=== PATIENT | female | born 1970 | race Caucasian/White ===

== ENCOUNTER → 2018-01-06 15:00 | Outpatient (CLI) | payer BC, SELFPAY ==
[2018-01-06 18:20] LABS: Anion Gap 12 (5-15); BUN 13 mg/dL (7-18); BUN/Creat Ratio 22.1 RATIO (10-20); Calcium,Total 8.9 mg/dL (8.5-10.1); Chloride 98 mmol/L (98-107); Creatinine, Serum 0.59 mg/dL (0.55-1.02); EST Glomerular Filtration Rate 116 mL/min (>60); Est Glom Filt Rate - Afr Amer 140 mL/min (>60); Glucose 232 mg/dL (74-106); Potassium 3.5 mmol/L (3.5-5.1); Sodium Level 135 mmol/L (136-145)
[2018-01-06 18:34] LABS: Hemoglobin A1c 10.9 % (4.2-6.3)
== END ==
PROVIDERS: Family Provider Family Medicine; PCP Family Medicine; Visit Provider Family Medicine
DX: R73.9 Hyperglycemia, unspecified (principal)
CPT/HCPCS: 36415; 80048; 83036

== ENCOUNTER → 2018-03-17 08:35 | Outpatient (CLI) | payer OTHER, SELFPAY ==
[2018-03-17 12:04] LABS: Absolute Lymphocyte Count 1.89 X10^3/ul (0.83-4.51); Absolute Neutrophil Count 2.6 X10^3/uL (2.0-7.7); Basophil# 0.03 X10^3/uL; Basophil% 0.6 % (0-1); Hematocrit 46.1 % (37-47); Hemoglobin 14.8 g/dl (12.0-15.0); Lymphocyte # 1.89 X10^3/ul (4.0); Lymphocyte % 37.5 % (19-41); Mean Corp Hgb Conc 32.1 g/gl (32-36); Mean Corpuscular Volume 90.2 fL (81-99); Mean Platelet Vol. 10.4 fl (6.2-12.0); Monocyte# 0.39 X10^3/uL; Monocyte% 7.7 % (0-10); Neutrophil # 2.62 X10^3/uL (2.7-7.7); Platelet Count 243 K/mm3 (150-450); RBC Distribution Width CV 12.5 % (11.6-14.6); RBC Distribution Width SD 40.9 fl (35.1-43.9); Red Blood Count 5.11 M/mm3 (4.2-5.4)
[2018-03-17 12:18] LABS: POSITIVE COUNT NO; POSITIVE DIFFERENTIAL NO; POSITIVE MORPHOLOGY NO
[2018-03-17 12:33] LABS: Anion Gap 11 (5-15); BUN 21 mg/dL (7-18); BUN/Creat Ratio 33.5 RATIO (10-20); Calcium,Total 8.5 mg/dL (8.5-10.1); Chloride 103 mmol/L (98-107); Creatinine, Serum 0.63 mg/dL (0.55-1.02); EST Glomerular Filtration Rate 107 mL/min (>60); Est Glom Filt Rate - Afr Amer 130 mL/min (>60); Glucose 263 mg/dL (74-106); Potassium 3.9 mmol/L (3.5-5.1); Sodium Level 138 mmol/L (136-145); T4 Free Direct 0.94 ng/dL (0.76-1.46)
== END ==
PROVIDERS: Family Provider Family Medicine; PCP Family Medicine; Visit Provider Family Medicine
DX: E11.65 Type 2 diabetes mellitus with hyperglycemia (principal)
CPT/HCPCS: 36415; 80048; 84439; 84443; 85025

== ENCOUNTER → 2020-08-31 07:05 | Outpatient (CLI) | payer OTHER, SELFPAY ==
--- NOTE | 2020-08-31 07:09 | BI_ITS ---
MAMMOGRAPHY - BILATERAL SCREENING REASON FOR EXAM: Female, 50 years old. Routine annual screening examination. PERTINENT HISTORY: Non-contributory. TECHNIQUE: Digital bilateral breast cely (3D mammographic acquisition) in the CC and MLO projections. 2-D mediolateral oblique (MLO) and craniocaudad (CC) views of both breasts were obtained. CAD: Full Field Digital Mammography with Computer Added Detection was performed. COMPARISON: Comparison is made with prior examination dated 08/30/2010. FINDINGS: Breast Composition: There are scattered areas of fibroglandular density. There are no dominant masses or suspicious calcifications. Stable 7 mm well-defined nodule in the axillary region of the right breast and keep with a small lymph node. No other significant abnormalities are identified. There has been no significant change since the prior study. BI/SCRN MAMM (CAD)W/CELY BILAT IMPRESSION: Stable bilateral screening mammogram. Yearly follow-up mammogram recommended. (A) ASSESSMENT CATEGORY: BIRADS Category 2: Benign. A letter regarding these results will be sent to the patient by the facility within 30 days. Approximately 10% of breast cancers are not detected by mammography. A normal mammogram should not delay biopsy of a clinically suspicious abnormality. [id number] Electronically Signed: Sukhdeep Godinez MD at 8:08 EDT , Service support ,
== END ==
PROVIDERS: PCP Family Medicine; Referring Provider Family Medicine; Visit Provider Family Medicine
DX: Z12.31 Encounter for screening mammogram for malignant neoplasm of breast (principal)
CPT/HCPCS: 77063; 77067

== ENCOUNTER → 2021-08-28 | Outpatient (CLI) | payer OTHER, SELFPAY ==
[2021-08-28 12:54] LABS: Cholesterol 191 mg/dL (200); High Density Lipoprotein 63 mg/dL; Triglycerides 131 mg/dL; Very Low Density Lipoprotein 26 mg/dL (5-40)
[2021-08-28 13:04] LABS: Vitamin D,25 Hydroxy 23.7 ng/mL
[2021-08-28 13:20] LABS: AST(SGOT) 19 U/L (15-37); Alanine Aminotransfer ALT/SGPT 19 U/L (13-56); Albumin, Serum 3.6 g/dL (3.2-5.0); Alkaline Phosphatase 43 U/L (45-117); Anion Gap 9 (5-15); BUN 17 mg/dL (7-18); Calcium,Total 8.6 mg/dL (8.5-10.1); Chloride 103 mmol/L (98-107); Creatinine, Serum 0.53 mg/dL (0.55-1.02); EST Glomerular Filtration Rate 128 mL/min (>60); Est Glom Filt Rate - Afr Amer 155 mL/min (>60); Globulin 3.7 g/dL (2.2-4.2); Glucose 127 mg/dL (74-106); Potassium 4.3 mmol/L (3.5-5.1); Protein, Total 7.3 g/dL (6.4-8.2); Sodium Level 138 mmol/L (136-145); Thyroid Stim Hormone (TSH) 1.52 uIU/mL (0.358-3.74)
== END | disposition home or self-care (01) ==
LOC: BIMLAB 08:32
PROVIDERS: Nurse Practitioner Family; PCP Family Medicine; Referring Provider Internal Medicine Endocrinology, Diabetes & Metabolism; Visit Provider Internal Medicine Endocrinology, Diabetes & Metabolism
DX: E11.65 Type 2 diabetes mellitus with hyperglycemia (principal); E66.3 Overweight
CPT/HCPCS: 36415; 80053; 80061; 82306; 84443

== ENCOUNTER → 2023-05-09 | Outpatient (CLI) | payer OTHER, SELFPAY ==
--- OUTSIDE RECORDS SUMMARY | 2023-05-09 09:59 | XMS RPT_ITS | CCD ---
Author Name Unknown Address [address] [place] [address] Organization [facility] Care Team Providers Care Manager Consumer Name Role Phone Pcp, No Primary Care Provider Unavailabl e Results Test Name Value Interpretation Reference Range Facil ity Encounters Encounter Date Encounter Type Care Provider Facility Start: 04-23-2006 End: 04-23-2006 Patient encounter procedure Deejay Espino (Historical) [place] Work Phone: [facility] Start: 04-23-2006 Results Only Deejay Espino (Histor ical) [employer] Work Phone: [facility] Procedures Date Procedure Procedure Detail Performing Clinician Start: 04-23-2006 CONVERTED SURGICAL PATHOLOGY Deejay Espino (Historical) [place] Work Phone: Plan of Treatment Date Care Activity Detail Author Start: 11-03-2019 Influenza vaccination INFLUENZA (#1) [facility] Start: 2019 SHINGRIX VACCINE (1 of 2) YOUSSEF GRIX VACCINE (1 of 2) [facility] Start: 2019 Tuberculosis screening COLOREC BAMBI CANCER SCREENING,SEE MODIFIER [facility] Start: 2014 DIABETES SCREEN DIABETES SCREEN [facility] Start: 2014 LIPID SCREEN LIPID SCREEN [facility] Start: 2009 Mammography MAMMOGRAM [facility] Start: 1999 HPV TESTING HPV TESTING [facility] Start: 1990 PAP TESTING PAP TESTING [facility] Start: 1988 Urine microalbumin profile DTAP,TDAP ,TD (1 - Tdap) [facility] Start: 1987 HEPATITIS C SCREENING HEPATITIS C SC STEPH [facility] Start: 1987 HIV SCREENING [facility]CREENING [facility] Payers Date Payer Category Payer Unknown [facility]OSP[facility]/MEDICAL GENERIC [id number] 2001-2009 Indemnity [id number] Unknown MMO [employer] [id number] Through 2018 PPO [id number] Social History Date Type Detail Facility Tobacco smoking status NHIS Unknown if ev er smoked [facility] Sex Assigned At Not on file [facility] Additional Source Comments Source Comments (unrecognize d section and content) In the event this informatio n is protected by the Federal Confidentiality of Alcohol and Drug Abuse Patient Records regulations: The Federal rules restrict any use of the information to criminally investigate or prosecute any alcohol or drug abuse patient.[facility] FOR RECORDS PERTAINING TO PATIENTS WHO ARE OR HAVE BEEN ENROLLED IN A CHEMICAL DEPENDENCY/SUBSTANCEABUSE PROGRAM, SOME INFORMATION MAY BE OMITTED. This clinical summary was aggregated from multiple sources. Caution should be exercised in using it in the provision of clinical care. This summary normalizes information from multiple sources, and as a consequence, information in this document may materially change the coding, format and clinical context of patient data. In addition, data may be omitted in some cases. CLINICAL DECISIONS SHOULD BE BASED ON THE PRIMARY CLINICAL RECORDS. [email or web address] [facility]. provides no warranty or guarantee of the accuracy or completeness of information in this document.
[2023-05-09 10:21] LABS: ALB/GLOB Ratio 0.9 RATIO (0.9-2.4); AST(SGOT) 11 U/L (15-37); Alanine Aminotransfer ALT/SGPT 11 U/L (13-56); Albumin, Serum 3.6 g/dL (3.2-5.0); Alkaline Phosphatase 57 U/L (45-117); Anion Gap 8 (5-15); BUN 22 mg/dL (7-18); BUN/Creat Ratio 34.9 RATIO (10-20); Calcium,Total 8.6 mg/dL (8.5-10.1); Chloride 105 mmol/L (98-107); Cholesterol 244 mg/dL (200); Creatinine, Serum 0.63 mg/dL (0.55-1.02); EST Glomerular Filtration Rate 104 mL/min (>60); Est Glom Filt Rate - Afr Amer 126 mL/min (>60); Glucose 131 mg/dL (74-106); High Density Lipoprotein 56 mg/dL; Potassium 3.8 mmol/L (3.5-5.1); Protein, Total 7.6 g/dL (6.4-8.2); Sodium Level 138 mmol/L (136-145); Thyroid Stim Hormone (TSH) 1.55 uIU/mL (0.358-3.74); Triglycerides 172 mg/dL; Very Low Density Lipoprotein 34 mg/dL (5-40)
[2023-05-09 10:56] LABS: Vitamin D,25 Hydroxy 21.4 ng/mL
[2023-05-09 12:31] LABS: Microalbumin,Random Urine 22.2 mg/L (NO RANGE EST.); Microalbumin:Creatinine Ratio 14.5 mg/g CRE (<30 mg/g CRE)
== END | disposition home or self-care (01) ==
PROVIDERS: Referring Provider Nurse Practitioner Family; Visit Provider Nurse Practitioner Family
DX: E11.9 Type 2 diabetes mellitus without complications (principal); E66.3 Overweight; E55.9 Vitamin D deficiency, unspecified
CPT/HCPCS: 36415; 80053; 80061; 82043; 82306; 82570; 84443

== ENCOUNTER 2024-05-28 15:30 | Outpatient (RCR) | payer OTHER, SELFPAY ==
--- NOTE | 2024-04-28 18:46 | HP.PTEVAL_ITS ---
Patient's Visit Information Visit Information Visit Information: DAWIT STOVALL is a 54 year old F referred to Physical Therapy by Dr. Trevon Aguero MD with a diagnosis of L ankle pain. Date of Evaluation: 04/28/24 Physical Therapist: Lemuel Koenig, DPT, OCS, CSCS Visit Plan Frequency: 2x /Week Duration: 4-6 Weeks Plan: 2x/week for 4-6 weeks start with Foot and ankle STM and PROM, use vaso and ice and TENS if painful at rest. Ensure patient resting at home and is to get brace for stabilization and wear neoprene and avoid aggravating activities, US nonthermal to L lateral ankle When improved, move to strength adn proprioception L ankle. IE HEP: gastroc stretch L 30 5 daily and use neoprene, get brace(pic given) and manage swelling with RICE Subjective Subjective: 4 weeks ago hard to walk on L foot and had x rays which look OK. May have some OA. More thinks torn ligaments. and gave pain meds. Started out of no where 4 weeks ago without reason. No other recent problems with it other than stiffness in bad weather. . 4 weeks ago hard to get shoes on. 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 No activities differing 4 weeks ago but it could be the bowling. It is her sliding foot. Had to stop. Dr. Aguero gave meds meloxicam and just started it today. Ibuprofen rest adn ice from original doctor. 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 Other hobbies: nothing. Regualr ex: no Basic ADLs are getting done adn putting shoes on wiggling in is tough. Doctor wants MRI but needs therapy first. 70% better. Pain L ankle lateral: Pain Intensity (Out of 10): 2 Pain Intensity Range: 2 and 8 Comment: stopped bowling a couple weeks ago. Objective Objective: Walks hesitantly into PT today adn slow but no antalgia. I gait with good balance. Trasnfers bed and chair are I. Steps reciprocal but turns sideways descending to avoid L DF. Swelling evident L lateral ankle over ATFL area and max tender through this area. Peroneals feel OK and some slight tenderness on malleoli laterally. AROM ankle is limited on L at 0 DF vs 4 on R, inv 20 L and pain and 30 R, inversion 10 L with pain and 18 R. PF 40 L and 50 R. Very painful with inv and ev testing MMT on L with 3+/5 and Df is 4 and PF is 4 and painful. Heel raise causes pain, toe walk not as bad. lateral walking is painful L la teral ankle + talar tilt on L. Metatarsals move well but painful on L lateral big toe strength and ROM WFL B Balance/Special Test Scores Lower Extremity Functional Score: 15 Goals Goal 1:: Put on shoes without pain Goal Time Frame: 2-4 Weeks Goal 2:: Pt feel 95% better overall and 1/10 pain at worst, comfortable at rest Goal Time Frame: 4-6 Weeks Goal 3:: I appropriate managemnt including bracing, and ex for proprioception and strength Goal Time Frame: 4-6 Weeks Goal 4:: LEFS score 40 Goal Time Frame: 4-6 Weeks Goal 5:: walks and steps without antalgia Goal Time Frame: 4-6 Weeks Rehabilitation Potential Physical Therapy Diagnosis: edema, pain, loss of ROM and weakness L ankle causing instability. and inflammation. Rehabilitation Potential: Fair Anticipated Interventions Patient/Client Instruction: Educate patient on: Condition and Plan of Care For the Purpose of:: To decrease pain, To increase ROM, To improve nutrient del sukhjinder to tissue, To improve muscle performance and motor function, To increase tolerance to activity/condition/position and To improve gait and locomotor functions Therapeutic Exercise to Include: Strength training, Balance training, Flexibilty training, Passive ROM and Active ROM For the Purpose of:: To decrease pain, To increase ROM, To improve nutrient delivery to tissue, To improve muscle performance and motor function, To increase tolerance to activity/condition/position, To decrease level of supervision to perform tasks and To improve gait and locomotor functions Manual Therapy Techniques to Include: Mobilization, Passive ROM and Soft tissue mobilization For the Purpose of:: To decrease pain, To increase ROM, To improve nutrient delivery to tissue, To improve muscle performance and motor function and To increase tolerance to activity/condition/position TENS: Yes Cryotherapy (ice pack, ice massage): Yes Ultrasound (thermal/non thermal): Yes (nontheermal) For the Purpose of:: To decrease pain, To decrease swelling/inflammation, To increase ROM and To improve nutrient delivery to tissue Text: Thank you for the opportunity to evaluate your patient. For Medicare and Medicare HMO plans, please review the plan of care and approve it. It will need to be FAXED BACK to us at [phone] for Medicare purposes. For Medicare only, by signing this I certify the plan of care. Please let me know if there are questions or concerns regarding this plan of care. Physician Signature: Date:
--- NOTE | 2024-05-28 16:23 | HP.PTDCSUM ---
Discharge Summary D/C summary: It has been my pleasure to treat DAWIT STOVALL referred by Dr. Trevon Aguero MD, with the diagnosis of L ankle pain for a total of 8 visit(s). Discharge Date: 05/28/24 Please see the following information for a summary of their discharge status. Subjective Subjective: Swelling is up and down. Seems to get better with massage. Will see More oshea for possible MRI. pain this week L ankle intermittent 4/10 but mostly 0/10, Only with pushing sideways into car. No improvement in those activities. Pivotting can also cause it. Transient pain. Pain L ankle lateral: Pain Intensity (Out of 10): 3 Overall Improvement % Improvement: 0 Objective Objective/Function: 2 degree DF B. Max tender ant lateral malleoli ligs and swollen here as much as day one. Painful ROM into eversion and ext on R and resisted inv, ev. Pt frustrated with lack of progrfess and sharp pains with lateral movement and getting in and out of car. Goals Goal 1:: Put on shoes without pain Goal Progress: Not Progressing Goal 2:: Pt feel 95% better overall and 1/10 pain at worst, comfortable at rest Goal Progress: Not Progressing Goal 3:: I appropriate managemnt including bracing, and ex for proprioception and strength Goal Progress: Not Progressing Goal 4:: LEFS score 40 Goal Progress: Not Progressing Goal 5:: walks and steps without antalgia Goal Progress: Goal Met Plan Plan: Pt back to doctor for next step due to lack of improvement with PT..., MRI? She will continue ex in the meantime via HEP d/c this chart. D/C Information Discharge Comments: Meche to doctor for next medical step. d/c sentence: If there are questions or concerns regarding this patient's physical therapy, please feel free to call me at [phone]. Thank you for the referral of this patient. Sincerely, Lemuel Koenig, DPT, OCS, CSCS Balance/Gait/Functional tests Balance/Special Test Scores Lower Extremity Functional Score: 50 Improvement % Improvement: 0
== END 2024-05-28 19:00 | disposition home or self-care (01) ==
LOC: PT 15:30
PROVIDERS: Referring Provider Anesthesiology; Visit Provider Anesthesiology
DX: M25.572 Pain in left ankle and joints of left foot (principal)
CPT/HCPCS: 97035; 97110; 97140; 97161; 97530

== ENCOUNTER → 2024-08-06 | Outpatient (CLI) | payer OTHER, SELFPAY ==
[2024-08-06 09:10] LABS: Microalbumin,Random Urine < 12.0 mg/L (NO RANGE EST.); Microalbumin:Creatinine Ratio UNABLE TO CALCULATE mg/g CRE
[2024-08-06 09:26] LABS: ALB/GLOB Ratio 1.4 RATIO (0.9-2.4); AST(SGOT) 18 U/L (<=31); Alanine Aminotransfer ALT/SGPT 9 U/L (<=34); Albumin, Serum 4.2 g/dL (3.5-5.0); Alkaline Phosphatase 65 U/L (35-104); Anion Gap 12 (5-15); BUN 16 mg/dL (4-19); Calcium,Total 9.1 mg/dL (7.6-11.0); Carbon Dioxide 26.9 mmol/L (21.0-32.0); Chloride 100 mmol/L (98-108); Cholesterol 218 mg/dL (<=200); EST Glomerular Filtration Rate 106 (>60); Globulin 2.9 g/dL (2.2-4.2); Glucose 180 mg/dL (70-99); High Density Lipoprotein 54 mg/dL; Low Density Lipoprotein Calc. 120 mg/dL; Potassium 4.1 mmol/L (3.3-5.1); Protein, Total 7.1 g/dL (5.9-8.4); Sodium Level 139 mmol/L (133-145); Total Bilirubin 0.95 mg/dL (0.00-1.30); Triglycerides 223 mg/dL; Very Low Density Lipoprotein 45 mg/dL (5-40); Vitamin D,25 Hydroxy 24.3 ng/mL (30-100); cholesterol:hdl ratio screen 4.04
[2024-08-07 14:09] LABS: Thyroid Peroxidase AB 274 IU/mL (0-34)
== END | disposition home or self-care (01) ==
PROVIDERS: Referring Provider Nurse Practitioner Family; Visit Provider Nurse Practitioner Family
DX: E11.9 Type 2 diabetes mellitus without complications (principal); Z79.4 Long term (current) use of insulin; R79.89 Other specified abnormal findings of blood chemistry
CPT/HCPCS: 36415; 80053; 80061; 82043; 82306; 82570; 84443; 86376

== ENCOUNTER → 2024-11-05 | Outpatient (CLI) | payer OTHER, SELFPAY ==
--- OUTSIDE RECORDS SUMMARY | 2024-11-05 06:10 | XMS RPT_ITS | CCD ---
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 Boris Pederson Primary Care Provider Dr. Boris Pederson Referring Provider TURNER Coulter-C Gisele Attending Provider Dr. Mk Maxwell Attending Provider Dr. Boris Pederson Primary Care Provider Unavaila ble Dr. Boris Pederson Referring Provider Unavailable Yfn TIRE BALANCER-C Gisele Attending Provider Care Physician, No Primary Primary Care Provider Unavailable Care Physician, No Primary Referring Provider Un available Yfn NEUMANNCGisele Attending Provider Boris Torres MD Attending Provider Susy FLORENCE, Dr. Suh Attending Provider Dr. Trevon Aguero MD Attending Provider Dr. Trevon Aguero MD Referring Provider Care Physician, No Primary Primary Care Provider Unavailable Yfn TIRE BALANCER-CGisele Attending Provider Yfn TIRE BALANCER-CGisele Referring Provider Care Physician, No Primary Referring Provider Un available Boris Torres Attending Unavailable Care Physician, No Primary Primary Care Unava ilable Care Physician, No Primary Referring Unava ilable Vikash Jain Attending Unavailable Care Physician, No Primary Primary Care Unava ilable Gisele Coulter Attending Unavailable Care Physician, No Primary Referring Unava ilable Care Physician, No Primary Primary Care Unava ilable Gisele Coulter Attending Unavailable Care Physician, No Primary Primary Care Unava ilable Care Physician, No Primary Referring Unava ilable Trevon Aguero Attending Unavailable Trevon Aguero Referring Unavailable Care Physician, No Primary Primary Care Unava Gisele Rubio Referring Unavailable Care Physician, No Primary Primary Care Unava Gisele Rubio Attending Unavailable Gisele Coulter Attending Unavailable Care Physician, No Primary Primary Care Unava ilable Care Physician, No Primary Referring Unava ilable Allergies Allergy Classification Reported Allergen(s) Allergy Type Date of Onset Reaction(s) Facility (6 sources) natural latex rubber; Translations: [Latex, Natural Rubber] Allergy to substance 2 hives [facility] (3 sources) Succinylcholine Drug Allergy 5 Other [facility] Comment on above: No true allergy but doesn't respond well to it (1 source) Succinylcholine Drug Allergy 5 [facility] Repository Medications Current Medications Medication Drug Class(es) Dates Sig (Normalized) Sig (Original) cholecalciferol 0.05 mg oral capsule (14 sources) Vitamin D Start: 08-06-2024 take 1 capsule by mouth once daily Cholecalciferol (Vitamin D3) 50 mcg (2,000 unit) capsule Active 100 ug PO daily August 06, 2024 12:00am Start: 08-14-2023 take 1 capsule by mo uth once daily Cholecalciferol (Vitamin D3) 50 mcg (2,000 unit) capsule Active 50 ug PO DAILY August 14, 2023 12:00am Start: 08-28-2021 End: 08-14-2023 take 1 tablet by mouth every week Cholecalciferol (Vitamin D3) 1,250 mcg (50,000 unit) tablet Discontinued 1250 ug PO EVERY WEEK November 27, 2021 8:11am August 14, 2023 2:14pm 3 ml insulin glargine 100 unt/ml pen injector (20 sources) Insulin Analog Start: 01-29-2024 Insulin Glargi ne (Lantus Solostar U-100 Insulin) 100 unit/mL (3 mL) insulin pen Active 30 U SC EVERY EVENING January 29, 2024 2:11pm Start: 05-01-2021 End: 01-29-2024 Insulin Glargine (Lantus Marcie ostar U-100 Insulin) 100 unit/mL (3 mL) insulin pen Discontinued 20 U SC EVERY EVENING August 03, 2023 3:43pm January 29, 2024 2:11pm 3 ml insulin lispro 100 unt/ml pen injector (20 sources) Insulin Analog Start: 08-06-2024 Insulin Lispro (Humalog Kwikpen Insulin) 100 unit/mL insulin pen Active 15 U SC THREE TIMES A DAY August 06, 2024 4:36pm Start: 08-15-2023 End: 08-06-2024 Insulin Lispro (Humalog Kwik pen Insulin) 100 unit/mL insulin pen Discontinued 7 U SC THREE TIMES A DAY August 15, 2023 12:00am August 06, 2024 4:37pm Start: 05-01-2021 End: 08-14-2023 Insulin Lispro (Humalog Kwik pen Insulin) 100 unit/mL insulin pen Discontinued 25 U SC THREE TIMES A DAY 22.5 July 04, 2022 10:28am August 14, 2023 2:18pm levothyroxine sodium 0.088 mg oral tablet (2 sources) l-Thyroxine Start: 08-06-2024 take 1 tablet by mouth once daily Levothyroxine (Euthyrox) 88 mcg tablet Active 88 ug PO daily August 06, 2024 12:00am rosuvastatin calcium 5 mg oral tablet (7 sources) HMG-CoA Reductase Inhibitor Start: 05-09-2023 End: 11-14-2023 take 1 tablet by mouth once daily Rosuvastatin 5 mg tablet Active 5 mg PO DAILY November 14, 2023 3:29pm Completed/Discontinued Medications Medication Drug Class(es) Dates Sig (Normalized) Sig (Original) acetaminophen 325 mg / HYDROcodone bitartrate 5 mg oral tablet (5 sources) Opioid Agonist Start: 03-08-2014 End: 08-28-2021 Hydrocodone-Acetami nophen 1 TABLET tablet Discontinued 1 {tbl} PO EVERY 4 HOURS NEEDED as needed for Pain March 08, 2014 1:00am August 28, 2021 8:26am Start: 03-08-2014 End: 08-28-2021 take 1 tablet by mouth every four hours as needed Hydrocodone-Acetaminophen Discontinued 1 TABLET PO EVERY 4 HOURS NEEDED March 08, 2014 1:00am August 28, 2021 8:26am Problems Active Problems Problem Classification Problem Date Documented Da te Episodic/Chronic Diabetes mellitus without complication (11 sources) Diabetes mellitus; Translations: [Type 2 diabetes mellitus without complications] Onset: 09-24-2024 Chronic Disorders of lipid metabolism (7 sources) Hypercholesterolemi a; Translations: [Pure hypercholesterolemi a, unspecified] Onset: 09-24-2024 05-09-2023 Chronic Nutritional deficiencies (9 sources) Vitamin D deficiency; Translations: [Vitamin D deficiency, unspecified] Onset: 09-24-2024 2022 Chronic Other aftercare (1 source) 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; Translations: [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] Onset: 09-24-2024 Episodic Other connective tissue disease (5 sources) Foot pain; Translations: [Pain in left foot] 03-05-2024 Episodic Other non-traumatic joint disorders (5 sources) Impingement of left ankle joint; Translations: [Other specified joint disorders, left ankle and foot] Episodic Other nutritional; endocrine; and metabolic disorders (5 sources) Obesity; Translations: [Obesity, unspecified] 03-05-2024 Chronic Other nutritional; endocrine; and metabolic disorders (1 source) Other obesity due to excess calories; Translations: [Other obesity due to excess calories] Onset: 09-24-2024 Chronic Other nutritional; endocrine; and metabolic disorders (1 source) Body mass index (BMI) 30.0-30.9, adult; Translations: [Body mass index [BMI] 30.0-30.9, adult] Onset: 09-24-2024 Chronic Other nutritional; endocrine; and metabolic disorders (5 sources) Overweight; Translations: [Overweight] 05-01-2021 Episodic Other screening for suspected conditions (not mental disorders or infectious disease) (3 sources) Raised TSH level; Translations: [Other specified abnormal findings of blood chemistry] Onset: 09-24-2024 08-06-2024 Episodic Thyroid disorders (3 sources) Hypothyroidism; Translations: [Hypothyroidism, unspecified] Onset: 09-24-2024 08-10-2024 Chronic Unclassified (1 source) M79.672 - Pain in left foot Unclassified (1 source) US or x ray guided L ankle joint cortisone injection Unclassified (1 source) Obesity, class 1; Translations: [Obesity, class 1] Onset: 09-24-2024 Past or Other Problems Problem Classification Problem Date Documented Da te Episodic/Chronic Other connective tissue disease (1 source) Pain in left foot; Translations: [Pain in left foot] Onset: 03-17-2024 Episodic Other nutritional; endocrine; and metabolic disorders (4 sources) Overweight; Translations: [Overweight] Onset: 11-14-2023 Episodic Results Test Name Value Interpretation Reference Range Facility Thyroid Peroxidase ABon 06-0 THYR PEROX AB 274 IU/mL High 0-34 [facility] Comment on above: Result Comment: Perf ormed at: - [facility] [address] [id number] Rf Design Engineer: Rosalino Mcgowan PhD, Phone: [phone] Performed By: #### L [id number] ####[facility] [id number] [place], [place], [address] Anion gap in Serum or Plasma Ordered By: Gisele Coulter on 08-06-2024 Anion gap [Moles/Vol] 12 mmol/L 5-15 [facility] BUN/creatinine ratioOrdered By: Gisele Coulter on 08-06-2024 Urea nitrogen/Creatinine [Mass ratio] 27.0 mg/mg High 10-20 [facility] Bilirubin, totalOrdered By: Gisele Coulter on 08-06-2024 Bilirubin [Mass/Vol] 0.95 mg/dL 0.00-1.30 [facility] Calculated very low density lipoprotein (VLDL) cholesterol measurementOrdered By: Gisele Coulter on 08-06-2024 Calculated very low density lipoprotein (VLDL) cholesterol measurement 45 mg/dL High 5-40 [facility] Carbon dioxide, total [Moles /volume] in Central venous bloodOrdered By: Gisele Coulter on 08-06-2024 CO2 [Moles/Vol] 26.9 mmol/L 21.0-32.0 [facility] Chloride assayOrdered By: Me memo Coulter on 08-06-2024 Chloride [Moles/Vol] 100 mmol/L 98-108 [facility] Comprehensive Metabolic Prof ilon 08-06-2024 Albumin [Mass/Vol] 4.2 g/dL Normal 3.5-5.0 [facility] Comment on above: Performed By: #### L 500.4050, L501.9520, L506.1001, L500.4100, L502.0250 #### [facility] [address] [place], [address] Albumin/Globulin [Mass ratio] 1.4 {ratio} Normal 0.9-2.4 [facility] Comment on above: Performed By: #### L 500.4050, L501.9520, L506.1001, L500.4100, L502.0250 #### [facility] [address] [place], [address] ALK PHOS 65 U/L Normal 35-104 [facility] Comment on above: Performed By: #### L 500.4050, L501.9520, L506.1001, L500.4100, L502.0250 #### [facility] [address] [place], [address] ALT [Catalytic activity/Vol] 9 U/L Normal <=34 [facility] Comment on above: Performed By: #### L 500.4050, L501.9520, L506.1001, L500.4100, L502.0250 #### [facility] [address] [place], [address] AST [Catalytic activity/Vol] 18 U/L Normal <=31 [facility] Comment on above: Performed By: #### L 500.4050, L501.9520, L506.1001, L500.4100, L502.0250 #### [facility] [address] [place], [address] Bilirubin [Mass/Vol] 0.95 mg/dL Normal 0.00-1.30 [facility] Comment on above: Performed By: #### L 500.4050, L501.9520, L506.1001, L500.4100, L502.0250 #### [facility] [address] [place], [address] BUN/CRE 27.0 RATIO High 10-20 [facility] Comment on above: Performed By: #### L 500.4050, L501.9520, L506.1001, L500.4100, L502.0250 #### [facility] [address] [place], [address] Calcium [Mass/Vol] 9.1 mg/dL Normal 7.6-11.0 [facility] Comment on above: Performed By: #### L 500.4050, L501.9520, L506.1001, L500.4100, L502.0250 #### [facility] [address] [place], [address] Chloride [Moles/Vol] 100 mmol/L Normal 98-108 [facility] Comment on above: Performed By: #### L 500.4050, L501.9520, L506.1001, L500.4100, L502.0250 #### [facility] [address] [place], [address] CO2 [Moles/Vol] 26.9 mmol/L Normal 21.0-32.0 [facility] Comment on above: Performed By: #### L 500.4050, L501.9520, L506.1001, L500.4100, L502.0250 #### [facility] [address] [place], [address] Creatinine [Mass/Vol] 0.60 mg/dL Low 0.70-1.20 [facility] Comment on above: Performed By: #### L 500.4050, L501.9520, L506.1001, L500.4100, L502.0250 #### [facility] [address] [place], [address] GAP 12 Normal 5-15 [facility] Comment on above: Performed By: #### L 500.4050, L501.9520, L506.1001, L500.4100, L502.0250 #### [facility] [address] [place], [address] GFR/1.73 sq M.predicted among non-blacks MDRD (S/P/Bld) [Vol rate/Area] 106 mL/min/{1.73_m2} Normal >60 [facility] Comment on above: Result Comment: mL/m in/1.73m2 CKD-EPI Creatinine Equation (2020) Performed By: #### L 500.4050, L501.9520, L506.1001, L500.4100, L502.0250 #### [facility] [address] [place], [address] Globulin (S) [Mass/Vol] 2.9 g/dL Normal 2.2-4.2 [facility] Comment on above: Performed By: #### L 500.4050, L501.9520, L506.1001, L500.4100, L502.0250 #### [facility] [address] [place], [address] Glucose [Mass/Vol] 180 mg/dL High 70-99 [facility] Comment on above: Performed By: #### L 500.4050, L501.9520, L506.1001, L500.4100, L502.0250 #### [facility] [address] [place], [address] Potassium [Moles/Vol] 4.1 mmol/L Normal 3.3-5.1 [facility] Comment on above: Performed By: #### L 500.4050, L501.9520, L506.1001, L500.4100, L502.0250 #### [facility] [address] [place], [address] Sodium [Moles/Vol] 139 mmol/L Normal 133-145 [facility] Comment on above: Performed By: #### L 500.4050, L501.9520, L506.1001, L500.4100, L502.0250 #### [facility] [address] [place], [address] T PROT 7.1 g/dL Normal 5.9-8.4 [facility] Comment on above: Performed By: #### L 500.4050, L501.9520, L506.1001, L500.4100, L502.0250 #### [facility] [address] [place], [address] Urea nitrogen [Mass/Vol] 16 mg/dL Normal 4-19 [facility] Comment on above: Performed By: #### L 500.4050, L501.9520, L506.1001, L500.4100, L502.0250 #### [facility] [address] [place], [address] Endocrinology Visit Reporton 08-06-2024 Endocrinology Visit Report [facility] [address] [place], [place] [address] OFFICE VISIT Date of Service: 08/06/24 MR#: [id number] Acct: [id number] Name: BRANDYSALOMONDAWIT Rep #: [id number] : 1970 Provider: VENKAT perez Age/Sex: 54/F Location: [facility] Status: Signed Intake Vital Signs 03/05/24 15:19 08/06/24 15:14 Height 5 ft 7.75 in 5 ft 7.75 in Weight: 206 lb BMI 31.5 BP 110/76 Blood Pressure Location Rt brachial Position Sitting Pulse 83 Pulse Source Monitor Pulse Oximetry (%) 93 Oxygen Delivery Method room air Intake Visit Reasons: 5 M FU Chief Complaint: f/u diabetes Is patient in pain?: No Allergies Latex, Natural Rubber Allergy (Intermediate, Verified 08/06/24 15:20) hives succinylcholine (From Anectine) Adverse Reaction (Verified 08/06/24 15:20) Other Medications ???Medication ???Instructions ???Recorded ???Confirmed ???Type pen needle, diabetic 32 gauge x #100 ea 05/09/23 08/06/24 Rx /32 (BD Ultra-Fine [place] Pen Needle) cholecalciferol (vitamin D3) 50 50 mcg PO DAILY 08/14/23 08/06/24 History mcg (2,000 unit) capsule rosuvastatin 5 mg tablet 5 mg PO DAILY #30 tabs 11/14/23 Rx Lantus Solostar U-100 Insulin 100 30 unit (0.3 mL) subcut QPM #9 mL 01/29/24 08/06/24 Rx unit/mL (3 mL) subcutaneous pen (insulin glargine) cholecalciferol (vitamin D3) 50 100 mcg (2 x 50 mcg (2,000 unit)) 08/06/24 08/06/24 Rx mcg (2,000 unit) capsule PO QDAY #180 caps insulin lispro 100 unit/mL 15 unit (0.15 mL) subcut TID #15 m L 08/06/24 Rx subcutaneous pen (Humalog KwikPen (U-100) Insulin) levothyroxine 88 mcg tablet 88 mcg PO QDAY #30 tabs 08/06/24 0 08/06/24 Rx (Euthyrox) PFSH Medical History Impingement of left ankle joint Hives Diabetes Allergies Surgical History History of foot surgery Family History Other Cancer Social History Smoking Status: Never smoker HPI [facility] Chief Complaint: f/u diabetes Details: DAWIT STOVALL, is a 54 F who presents to the office today for evaluation and management of diabetes. A1C today is 7.7%, increased from 03/05/24 at 7.2%. She has gained 10 lbs since that time. She admits that she is off track with her diet. Currently taking Lantus 26 u once daily and Humalog 12 u TIDCM. She denies any blood sugars <70. BP is controlled. She had labs completed for today's appt. TSH 10.90. She reports fatigue and dry skin, though this is rather chronic in nature. Denies any known family history of thyroid disease. Hx of vitamin D deficiency. She is taking vitamin D3 2,000 iu once daily. Vitamin D remains low. She takes a daily statin. Cholesterol elevated. She is working with ortho for chronic left foot pain. She is to get an MRI later this month. Denies any acute concerns. ROS Const Constitutional: Positive for fatigue and weight change ENT ENT: No dizziness/vertigo Cardio Cardiology: No chest pain at rest, chest pain with exertion, shortness of breath or palpitations Musc Musculoskeletal: Positive for joint pain Skin Skin: No wounds Endo Endocrine: Positive for fatigue and weight change Exam Const General: cooperative, healthy appearing, comfortable and no acute distress Nutritional Appearance: obese Orientation: alert, awake and oriented x3 HENMT Head: normal to inspection Ears: hearing grossly normal bilaterally Nose: external nose normal Face and sinus: normal facial exam Eyes General: appearance normal, both eyes and all related structures Alignment and Position: alignment normal Sclera: sclerae normal Neck Neck: normal visual inspection Chest Chest palpation inspection: normal inspection of the chest Resp Effort Inspection: normal respiratory effort, able to speak in complete sentences, symmetric chest movement, normal respiratory pattern, no audible wheezes and no cough Auscultation: Bilateral: Clear to Auscultation Cardio Rate: regular rate Rhythm: regular rhythm Heart Sounds: S1 normal and S2 normal GI Inspection: obesity Musc Cervical Spine: normal cervical lordosis Thoracic/Lumbar Spine: thoracic and lumbar spine normal to inspection Skin General: no rashes or lesions noted Lesions: no lesions Rashes: no rashes Trauma: no lacerations or abrasions Wounds: no wounds Neuro General: patient alert, patient awake and patient oriented x3 Cognition: normal cognition Speech: speech normal Gait: normal gait Extrem General: normal to inspection and no pedal edema Psych Appearance: g (more content not included)... Normal [facility] Glomerular filtration rate ( GFR) estimation/1.73 sq m using serum, plasma, or whole bOrdered By: Gisele Coulter on 08-06-2024 GFR/1.73 sq M.predicted among non-blacks MDRD (S/P/Bld) [Vol rate/Area] 106 mL/min/{1.73_m2} >60 [facility] Comment on above: mL/min/1.73m2 CKD-EP I Creatinine Equation (2020) LDL calc ser/plasOrdered By: Gisele Coulter on 08-06-2024 Cholesterol in LDL [Mass/Vol] 120 mg/dL [facility] Comment on above: Cyhselcaiv=620-152 m g/dL & Higher Hkrv=915 mg/dL or greater Laboratory - Chemistry and C hemistry - challengeOrdered By: Gisele Coulter on 08-06-2024 AST [Catalytic activity/Vol] 18 U/L <32 [facility] Laboratory - Hematology and Cell countsOrdered By: Gisele Coulter on 08-06-2024 HbA1c (Bld) [Mass fraction] 7.7 % High 4.2-6.3 [facility] Lipid Profileon 08-06-2024 CHOL:HDL 4.04 Normal [facility] Comment on above: Performed By: #### L 500.4050, L501.9520, L506.1001, L500.4100, L502.0250 #### [facility] [address] [place], [address] Cholesterol [Mass/Vol] 218 mg/dL High <=200 [facility] Comment on above: Result Comment: Chol esterol level, Desirable <200 mg/dL Borderline high cholesterol 200-239 mg/dL High cholesterol >=240 mg/dL Recommendations of the NCEP Adult Treatment Panel for the following risk-cutoff thresholds for the [place] population. Performed By: #### L 500.4050, L501.9520, L506.1001, L500.4100, L502.0250 #### [facility] [address] [place], [address] Cholesterol in HDL [Mass/Vol] 54 mg/dL Normal [facility] Comment on above: Result Comment: Arabella onal Cholesterol Education Program (NCEP) guidelines: <40 mg/dL: Low HDL-cholesterol (major risk factor for CHD) >= 60 mg/dL: High HDL-cholesterol (negative risk factor for CHD) HDL-cholesterol is affected by a number of factors, e.g. smoking, exercise, hormones, sex and age. Performed By: #### L 500.4050, L501.9520, L506.1001, L500.4100, L502.0250 #### [facility] [address] [place], [address] Cholesterol in LDL [Mass/Vol] 120 mg/dL Normal [facility] Comment on above: Result Comment: Bord erbdlc=623-078 mg/dL Higher Zqxf=576 mg/dL or greater Performed By: #### L 500.4050, L501.9520, L506.1001, L500.4100, L502.0250 #### [facility] [address] [place], [address] Cholesterol in VLDL [Mass/Vol] 45 mg/dL High 5-40 [facility] Comment on above: Performed By: #### L 500.4050, L501.9520, L506.1001, L500.4100, L502.0250 #### [facility] [address] [place], [address] Triglyceride [Mass/Vol] 223 mg/dL High [facility] Comment on above: Result Comment: The drugs N-Acetylcysteine and Metamizole may falsely depress this assay. Normal range: <150 mg/dL Borderline High: 150-199 mg/dL High: 200-499 mg/dL Very High: >500 mg/dL Performed By: #### L 500.4050, L501.9520, L506.1001, L500.4100, L502.0250 #### [facility] [address] [place], [address] Microalb:Creat Ratio,Random URon 08-06-2024 Creatinine [Mass/Vol] 121.00 mg/dL Normal 28.00-217.00 [facility] Comment on above: Performed By: #### L 500.4050, L501.9520, L506.1001, L500.4100, L502.0250 #### [facility] [address] [place], [address] MALB:CREAT UNABLE TO CALCULATE Normal [facility] Comment on above: Performed By: #### L 500.4050, L501.9520, L506.1001, L500.4100, L502.0250 #### [facility] [address] [place], [address] MICROALBUMIN,UR < 12.0 Normal NO RANGE EST. [facility] Comment on above: Performed By: #### L 500.4050, L501.9520, L506.1001, L500.4100, L502.0250 #### [facility] [address] [place], [address] Microalbumin/creat ratio urO rdered By: Gisele Coulter on 08-06-2024 Urine microalbumin/creatinin e ratio measurement UNABLE TO CALCULATE mg/g CRE [facility] Potassium measurement (mass/ volume)Ordered By: Gisele Coulter on 08-06-2024 Potassium (Unsp spec) [Mass/Vol] 4.1 mmol/L 3.3-5.1 [facility] Random urine creatinine elizabeth urement (mass/volume)Ordered By: Gisele Coulter on 08-06-2024 Creatinine Unsp time (U) [Mass/Vol] 121.00 mg/dL 28.00-217.00 [facility] Screening total cholesterol/ high density lipoprotein (HDL) cholesterol ratioOrdered By: Gisele Coulter on 08-06-2024 Cholesterol.total/Chol esterol in HDL [Mass ratio] 4.04 {ratio} [facility] Serum creatinine measurement (mass/volume)Ordered By: Gisele Coulter on 08-06-2024 Creatinine [Mass/Vol] 0.60 mg/dL Low 0.70-1.20 [facility] Serum globulin measurementOr dered By: Gisele Coulter on 08-06-2024 Globulin (S) [Mass/Vol] 2.9 g/dL 2.2-4.2 [facility] Serum glucose measurement (m ass/volume)Ordered By: Gisele Coulter on 08-06-2024 Glucose [Mass/Vol] 180 mg/dL High 70-99 [facility] Serum or plasma alanine bryan otransferase (ALT) measurementOrdered By: Gisele Coulter on 08-06-2024 ALT [Catalytic activity/Vol] 9 U/L <35 [facility] Serum or plasma albumin elizabeth urement (mass/volume)Ordered By: Gisele Coulter on 08-06-2024 Albumin [Mass/Vol] 4.2 g/dL 3.5-5.0 [facility] Serum or plasma albumin/glob ulin mass ratioOrdered By: Gisele Coulter on 08-06-2024 Albumin/Globulin [Mass ratio] 1.4 {ratio} 0.9-2.4 [facility] Serum or plasma alkaline rosetta sphatase measurementOrdered By: Gisele Coulter on 08-06-2024 ALP [Catalytic activity/Vol] 65 U/L 35-104 [facility] Serum or plasma calcium elizabeth urement (mass/volume)Ordered By: Gisele Coulter on 08-06-2024 Calcium [Mass/Vol] 9.1 mg/dL 7.6-11.0 [facility] Serum or plasma cholesterol in HDL measurement (mass/volume)Ordered By: Gisele Coulter on 08-06-2024 Cholesterol in HDL [Mass/Vol] 54 mg/dL >40 [facility] Comment on above: National Cholesterol Education Program (NCEP) guidelines:<40 mg/dL: Low HDL-cholesterol (major risk factor for CHD)>= 60 mg/dL: High HDL-cholesterol (negative risk factor for CHD)HDL-cholesterol is affected by a number of factors, e.g. smoking, exercise, hormones, sex and age. Serum or plasma cholesterol measurement (mass/volume)Ordered By: Gisele Coulter on 08-06-2024 Cholesterol [Mass/Vol] 218 mg/dL High <201 [facility] Comment on above: Cholesterol level, D esirable <200 mg/dLBorderline high cholesterol 200-239 mg/dLHigh cholesterol >=240 mg/dLRecommendations of the NCEP Adult Treatment Panel for the following risk-cutoff thresholds for the [place] population. Serum or plasma thyroperoxid ase antibody assay (units/volume)Ordered By: Gisele Coulter on 08-06-2024 TPO Ab Qn 274 [IU]/mL High 0-34 [facility] Comment on above: Performed at: [address] [id number] Director: Rosalino Mcgowan PhD, Phone: [phone] Serum or plasma urea nitroge n measurement (mass/volume)Ordered By: Gisele Coulter on 08-06-2024 Urea nitrogen [Mass/Vol] 16 mg/dL 4-19 [facility] Sodium levelOrdered By: Erik Coulter on 08-06-2024 Sodium [Moles/Vol] 139 mmol/L 133-145 [facility] TSH DL <= 0.005 mIU/L QnOrde red By: Gisele Coulter on 08-06-2024 TSH Qn 10.900 uIU/mL High 0.300-4.200 [facility] Thyroid Stim Hormone (TSH)on 08-06-2024 TSH 10.900 uIU/mL High 0.300-4.200 [facility] Comment on above: Performed By: #### L 500.4050, L501.9520, L506.1001, L500.4100, L502.0250 #### [facility] [address] [place], [place], [id number] Total proteinOrdered By: Yadira Coulter on 08-06-2024 Protein [Mass/Vol] 7.1 g/dL 5.9-8.4 [facility] Triglycerides measurementOrd ered By: Gisele Coulter on 08-06-2024 Triglyceride [Mass/Vol] 223 mg/dL High <199 [facility] Comment on above: The drugs N-Acetylcy steine and Metamizole may falsely depress this assay. Normal range: <150 mg/dLBorderline High: 150-199 mg/dLHigh: 200-499 mg/dLVery High: >500 mg/dL Urine albumin measurement wi detection limit of 20 mg/L or less (mass/volume)Ordered By: Gisele Coulter on 08-06-2024 Albumin DL <= 20 mg/L (U) [Mass/Vol] < 12.0 mg/L NO RANGE EST. [facility] Vitamin D,25 Hydroxyon 08-06 Vitamin D 25-OH 24.3 ng/mL Low 30-100 [facility] Comment on above: Result Comment: Radha min D Status Deficiency: <20 ng/mL (50nmol/L) Insufficiency: 20-30 ng/mL (50-75 nmol/L) Sufficiency: 30-100 ng/mL (75-250 nmol/L) Toxicity: >100 ng/mL (>250 nmol/L) Performed By: #### L 500.4050, L501.9520, L506.1001, L500.4100, L502.0250 ####[facility] [id number] [place], [place], [id number] PT D/C Summary (1)on 025 PT D/C Summary (1) [facility] Physical Therapy [facility] [address] [place] [address]. [address] [place] [address] / REHABILITATION SERVICES DISCHARGE SUMMARY MR#: [id number] Acct: [id number] Name: DAWIT STOVALL Rep #: [id number] : 1970 54 From: Ronald Koenig DPT, OCS, CSCS Referring Dr.: Dr. Trevon Aguero MD Status: REG RCR Insurance: [facility] SELF PAY INSURANCE Discharge Summary D/C summary: It has been my pleasure to treat DAWIT STOVALL referred by Dr. Trevon Aguero MD, with the diagnosis of L ankle pain for a total of 8 visit(s). Discharge Date: 05/28/24 Please see the following information for a summary of their discharge status. Subjective Subjective: Swelling is up and down. Seems to get better with massage. Will see More adrian therapy for possible MRI. pain this week L ankle intermittent 4/10 but mostly 0/10, Only with pushing sideways into car. No improvement in those activities. Pivotting can also cause it. Transient pain. Pain L ankle lateral: Pain Intensity (Out of 10): 3 Overall Improvement % Improvement: 0 Objective Objective/Function: 2 degree DF B. Max tender ant lateral malleoli ligs and swollen here as much as day one. Painful ROM into eversion and ext on R and resisted inv, ev. Pt frustrated with lack of progrfess and sharp pains with lateral movement and getting in and out of car. Goals Goal 1:: Put on shoes without pain Goal Progress: Not Progressing Goal 2:: Pt feel 95% better overall and 1/10 pain at worst, comfortable at rest Goal Progress: Not Progressing Goal 3:: I appropriate managemnt including bracing, and ex for proprioception and strength Goal Progress: Not Progressing Goal 4:: LEFS score 40 Goal Progress: Not Progressing Goal 5:: walks and steps without antalgia Goal Progress: Goal Met Plan Plan: Pt back to doctor for next step due to lack of improvement with PT..., MRI? She will continue ex in the meantime via HEP d/c this chart. D/C Information Discharge Comments: Meche to doctor for next medical step. d/c sentence: If there are questions or concerns regarding this patient's physical therapy, please feel free to call me at [phone]. Thank you for the referral of this patient. Sincerely, Ronald Koenig, SHREYA, OCS, CSCS Balance/Gait/Functional tests Balance/Special Test Scores Lower Extremity Functional Score: 50 Improvement % Improvement: 0 05/28/24 0073 CC: Dr. Trevon Aguero MD; No Primary Care Physician EBG Signed Normal [facility] Inital Evaluation (1) - PTon 04-28-2024 Inital Evaluation (1) - PT [facility] Physical Therapy [facility] [address] [place] [address] / REHABILITATION SERVICES INITIAL EVALUATION MR#: [id number] Acct: [id number] Name: DAWIT STOVALL Fahad Rep #: [id number] : 1970 54 From: Ronald Koenig DPT, OCS, CSCS Referring Dr.: Dr. Trevon Aguero MD Status: REG RCR Insurance: [facility] SELF PAY INSURANCE Patient's Visit Information Visit Information Visit Information: DAWIT STOVALL is a 54 year old F referred to Physical Therapy by Dr. Trevon Aguero MD with a diagnosis of L ankle pain. Date of Evaluation: 04/28/24 Physical Therapist: Ronald Koenig, DPT, OCS, CSCS Visit Plan Frequency: 2x /Week Duration: 4-6 Weeks Plan: 2x/week for 4-6 weeks start with Foot and ankle STM and PROM, use vaso and ice and TENS if painful at rest. Ensure patient resting at home and is to get brace for stabilization and wear neoprene and avoid aggravating activities, US nonthermal to L lateral ankle When improved, move to strength adn proprioception L ankle. IE HEP: gastroc stretch L 30 5 daily and use neoprene, get brace(pic given) and manage swelling with RICE Subjective Subjective: 4 weeks ago hard to walk on L foot and had x rays which look OK. May have some OA. More thinks torn ligaments. and gave pain meds. Started out of no where 4 weeks ago without reason. No other recent problems with it other than stiffness in bad weather. . 4 weeks ago hard to get shoes on. 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 No activities differing 4 weeks ago but it could be the bowling. It is her sliding foot. Had to stop. Dr. Aguero gave meds meloxicam and just started it today. Ibuprofen rest adn ice from original doctor. 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 Other hobbies: nothing. Regualr ex: no Basic ADLs are getting done adn putting shoes on wiggling in is tough. Doctor wants MRI but needs therapy first. 70% better. Pain L ankle lateral: Pain Intensity (Out of 10): 2 Pain Intensity Range: 2 and 8 Comment: stopped bowling a couple weeks ago. Objective Objective: Walks hesitantly into PT today adn slow but no antalgia. I gait with good balance. Trasnfers bed and chair are I. Steps reciprocal but turns sideways descending to avoid L DF. Swelling evident L lateral ankle over ATFL area and max tender through this area. Peroneals feel OK and some slight tenderness on malleoli laterally. AROM ankle is limited on L at 0 DF vs 4 on R, inv 20 L and pain and 30 R, inversion 10 L with pain and 18 R. PF 40 L and 50 R. Very painful with inv and ev testing MMT on L with 3+/5 and Df is 4 and PF is 4 and painful. Heel raise causes pain, toe walk not as bad. lateral walking is painful L lateral ankle + talar tilt on L. Metatarsals move well but painful on L lateral big toe strength and ROM WFL B Balance/Special Test Scores Lower Extremity Functional Score: 15 Goals Goal 1:: Put on shoes without pain Goal Time Frame: 2-4 Weeks Goal 2:: Pt feel 95% better overall and 1/10 pain at worst, comfortable at rest Goal Time Frame: 4-6 Weeks Goal 3:: I appropriate managemnt including bracing, and ex for proprioception and strength Goal Time Frame: 4-6 Weeks Goal 4:: LEFS score 40 Goal Time Frame: 4-6 Weeks Goal 5:: walks and steps without antalgia Goal Time Frame: 4-6 Weeks Rehabilitation Potential Physical Therapy Diagnosis: edema, pain, loss of ROM and weakness L ankle causing instability. and inflammation. Rehabilitation Potential: Fair Anticipated Interventions Patient/Client Instruction: Educate patient on: Condition and Plan of Care For the Purpose of:: To decrease pain, To increase ROM, To improve nutrient delivery to tissue, To improve muscle performance and motor function, To increase tolerance to activity/condition/posi tion and To improve gait and locomotor functions Therapeutic Exercise to Include: Strength training, Balance training, Flexibilty training, Passive ROM and Active ROM For the Purpose of:: To decrease pain, To increase ROM, To improve nutrient delivery to tissue, To improve muscle performance and motor function, To increase tolerance to activity/condition/posi tion, To decrease level of supervision to perform tasks and To improve gait and locomotor functions Manual Therapy Techniques to Include: Mobilization, Passive ROM and Soft tissue mobilization For the Purpose of:: To decrease pain, To increase ROM, To improve nutrient delivery to tissue, To improve muscle performance and motor function and To increase tolerance to activity/condition/posi tion TENS: Yes Cryotherapy (ice pack, ice massage): Yes Ultrasound (thermal/non thermal): Yes (nontheermal) For the Purpose of:: To decrease pain, To decrease swelling/inflammation, To increase ROM and To improve nutrient delivery to tissue T (more content not included)... Normal [facility] Ankle min 3 Viewson 03-17-19 25 Ankle min 3 Views [facility] [address] [place] [address] Ankle min 3 Views MR#: [id number] Acct: [id number] Name: DAWIT STOVALL Rep #: [id number] : 1970 F 53 From: Jimmy Loev MD PCP: Care Physician,No Primary Status: DEP AMB Study: Ankle min 3 Views Date of Exam: 03/17/24 Exam# [id number] Ordering Dr: [place] [id number] STUDY: X-RAY - LEFT ANKLE REASON FOR EXAM: Female, 53 years old. Pain. TECHNIQUE: 3 views of the left ankle. COMPARISON: None. FINDINGS: There is a partially threaded fixation screw in the distal tibia. Normal visualized distal fibula. Normal medial and lateral malleoli. Normal tibiotalar articulation and ankle mortise. Normal visualized talus and calcaneus. The visualized subtalar, talonavicular, calcaneocuboid and tarsal articulations are normal. There is no demonstrated acute fracture. The soft tissue structures are unremarkable. RAD/Ankle min 3 Views IMPRESSION: Partially threaded fixation screw in the distal tibia. No demonstrated acute fracture. Electronically Signed: Jimmy Love MD at 14:41 EST , CC: Dr. 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 Pain. TECHNIQUE: 3 views of the left foot. COMPARISON: None. FINDINGS: Normal talus, calcaneus, and tarsal bones. Normal visualized subtalar, talonavicular, calcaneocuboid, tarsal and tarsometatarsal articulations. Normal metatarsi. Normal metatarsophalangeal joint of the great toe. Normal tibial and fibular sesamoid bones. Normal interphalangeal joint of the great toe. Normal phalanges of the great toe. Normal second through fifth metatarsophalangeal joints. Normal interphalangeal joints and phalanges of the lesser toes. The soft tissue structures are unremarkable. There is no demonstrated fracture. RAD/Foot min 3 Views IMPRESSION: Normal x-ray examination of the left foot. Electronically Signed: Jimmy Love MD at 14:51 EST Reading Location ID and State: [facility] / [place] , Service support , CC: Dr. 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 Boris fitzgerald MD Age/Sex: 53/F [place] [facility] [place] Status: Signed Intake Vital Signs 03/05/24 15:19 Height 5 ft 7.75 in Weight: 196 lb 6 oz BMI 30.0 BP 134/85 H Blood Pressure Location Lt brachial Position Sitting Pulse 85 Pulse Source Monitor Pulse Oximetry (%) 97 Oxygen Delivery Method room air Intake Visit Reasons: LEFT FOOT Chief Complaint: Left Foot Pain Accompanied by: Self Is patient in pain?: Yes Pain scale (1-10): 5 Allergies Latex, Natural Rubber Allergy (Intermediate, Verified 03/17/24 14:59) hives succinylcholine (From Anectine) Adverse Reaction (Verified 03/17/24 15:00) Other Medications ???Medication ???Instructions ???Recorded ???Confirmed ???Type pen needle, diabetic 32 gauge x #100 ea 05/09/23 03/17/24 Rx 5/32 (BD Ultra-Fine [place] Pen Needle) cholecalciferol (vitamin D3) 50 50 mcg PO DAILY 08/14/23 03/17/24 History mcg (2,000 unit) capsule insulin lispro 100 unit/mL 7 unit (0.07 mL) subcut TID #15 mL 08/15/23 03/17/24 Rx subcutaneous pen (Humalog KwikPen (U-100) Insulin) rosuvastatin 5 mg tablet 5 mg PO DAILY #30 tabs 11/14/23 03/17/24 Rx Lantus Solostar U-100 Insulin 100 30 unit (0.3 mL) subcut QPM #9 mL 01/29/24 03/17/24 Rx unit/mL (3 mL) subcutaneous pen (insulin glargine) [facility] Medical History (Updated 03/17/24 @ 15:24 by Boris Torres MD) Impingement of left ankle joint Hives Diabetes Allergies Surgical History History of foot surgery Family History Other Cancer Social History Smoking Status: Never smoker HPI LEFT FOOT Details: This documentation accurately reflects the service provided and the decisions made by me, Dr. Boris Torres MD 03/17/24 8611. Part of today???s visit was documented by [ ], acting as scribe. DAWIT STOVALL is a 53 year old F here today for L ankle and foot pain. lateral ankle and lateral foot. had a growth plate injury and surgery as a young person around 12. 3 weeks hx of pain and swelling. no locking or catching. 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 some walking, not execssive though. tried rest and offloading. Ortho Exam General General: Yes no acute distress Neurologic: Yes alert and Yes oriented x3 Psychologic: Yes reasonable and appropriate Left Foot/Ankle Skin: Yes CDI and Soft Tissue Swelling; No Ecchymosis or Erythema Exam: Yes Soft tissue swelling, TTP ATFL, TTP distal 5th metatarsal, eversion normal and inversion normal; No Ecchymosis, Erythema, TTP Lateral Malleolus, TTP Medial Malleolus, TTP Deltoid Ligament, TTP Lisfranc Joint, tender to palpate calcaneofibular ligament, TTP Retrocalcaneal bursa, TTP Peroneal or peroneal snapping Compartments: soft Dorsiflexion 0-20: 0 degrees Plantar Flexion 0-40: 35 degrees ROM: No pain with range of motion or crepitus with range of motion Anterior Drawer: 0 Tests: Conway Test: 1 and Squeeze Test: 1 Motor: Ankle Dorsiflextion: 5, Ankle Plantar Flexion: 5, Ankle Eversion: 5, Ankle Inversion: 5 and EHL: 5 Sensation: Deep Peroneal Nerve: I, Superficial Peroneal Nerve: I, Tibial Nerve: I, Sural Nerve: I and Saphenous Nerve: I Pulses: Dorsalis Pedis: 2 and Posterior Tibial: 2 ANKLE: healed incision AL about the ankle. Supplemental Info X-rays taken today of her right foot 3 views -no acute abnormalities. No obvious stress fracture of the fifth metatarsal. X-rays taken right ankle 3 views -there is sign of a percutaneous screw fixation of the distal tibia epiphysis. Tibiotalar joint space reasonly well-maintained but there is evidence of narrowing at the lateral gutter between the fibula and the talus. There is no obvious problems with the hardware. Coding Level of Care Code Off vis,new,level 3 Diagnoses Left foot pain M79.672 Impingement of left ankle joint M25.872 Assessment and Plan Assessment and Plan (1) Left foot pain: Status: Chronic Plan: 53-year-old female with left ankle pain and swelling. This looks like most consistent with subfibular impingement. Can also be stress reaction, tendonitis, or other ddx. Explained the di agnosis prognosis and treatment options available include but not limited to rest ice anti- inflammatories activity modifications cortisone injections bracing patient declined a brace. This can also be amenable to arthroscopic management. Overall the tibiotalar joint space appears well- maintained. Patient w (more content not included)... Normal [facility] Endocrinology Visit Reporton 03-05-2024 Endocrinology Visit Report [facility] [address] [place] [address] OFFICE VISIT Date of Service: 03/05/24 MR#: [id number] Acct: [id number] Name: BRANDYSALOMONDAWIT D Rep #: [id number] : 1970 Provider: VENKAT perez Age/Sex: 53/F [place] [facility] [place] Status: Signed Intake Vital Signs 11/14/23 15:13 03/05/24 15:19 Height 5 ft 7.75 in 5 ft 7.75 in Weight: 195 lb 196 lb 6 oz BMI 29.8 30.0 BP 117/81 H 134/85 H Blood Pressure Location Lt brachial Lt brachial Position Sitting Sitting Pulse 88 85 Pulse Source Monitor Monitor Pulse Oximetry (%) 96 97 Oxygen Delivery Method room air room air Intake Visit Reasons: 4 M FU Chief Complaint: f/u diabetes Is patient in pain?: No Allergies Latex, Natural Rubber Allergy (Intermediate, Verified 03/05/24 15:23) hives Medications ???Medication ???Instructions ???Recorded ???Confirmed ???Type pen needle, diabetic 32 gauge x #100 ea 05/09/23 03/05/24 Rx 5/32 (BD Ultra-Fine [place] Pen Needle) cholecalciferol (vitamin D3) 50 50 mcg PO DAILY 08/14/23 03/05/24 History mcg (2,000 unit) capsule insulin lispro 100 unit/mL 7 unit (0.07 mL) subcut TID #15 mL 08/15/23 03/05/24 Rx subcutaneous pen (Humalog KwikPen (U-100) Insulin) rosuvastatin 5 mg tablet 5 mg PO DAILY #30 tabs 11/14/23 03/05/24 Rx Lantus Solostar U-100 Insulin 100 30 unit (0.3 mL) subcut QPM #9 mL 01/29/24 03/05/24 Rx unit/mL (3 mL) subcutaneous pen (insulin glargine) [facility] Medical History Hives Diabetes Allergies Family History Other Cancer Social History Smoking Status: Never smoker HPI HPI Chief Complaint: f/u diabetes Details: DAWIT STOVALL, is a 53 F who presents to the office today for evaluation and management of diabetes. A1C today is 7.2%, increased from 11/14/23 at 7.0%. She has gained 1 lb. Currently taking lantus 26 u once daily and Humalog 10 u with meals. She states that she typically only eats one meal a day and will typically take humalog after meal if blood sugar is elevated. She had one instance of blood sugar of 46. Her blood sugar was elevated, she gave herself fast acting insulin and fell asleep. She woke from sleep and was able to treat; however she reports she was sweating and somewhat disoriented. BP stable. Hx of vitamin D deficiency. She is taking vitamin D3 2,000 iu once daily. She takes a daily statin. Labs are up to date. She reports left foot pain, worse with walking and position changes. She fractured growth plate approximately 40 years ago that required surgery. She is interested in evaluation with ortho. ROS Const Constitutional: No fatigue or weight change ENT ENT: No dizziness/vertigo Cardio Cardiology: No chest pain at rest, chest pain with exertion, shortness of breath or palpitations Musc Musculoskeletal: Positive for abnormal gait and joint pain Neuro Neurology: Positive for abnormal gait Skin Skin: No wounds Endo Endocrine: No fatigue or weight change Exam Const General: cooperative, healthy appearing, comfortable and no acute distress Nutritional Appearance: obese Orientation: alert, awake and oriented x3 HENMT Head: normal to inspection Ears: hearing grossly normal bilaterally Nose: external nose normal Face and sinus: normal facial exam Eyes General: appearance normal, both eyes and all related structures Alignment and Position: alignment normal Sclera: sclerae normal Neck Neck: normal visual inspection Carotids: normal carotid upstroke Chest Chest palpation inspection: normal inspection of the chest Resp Effort Inspection: normal respiratory effort, able to speak in complete sentences, symmetric chest movement, normal respiratory pattern, no audible wheezes and no cough Auscultation: Bilateral: Clear to Auscultation Cardio Rate: regular rate Rhythm: regular rhythm Heart Sounds: S1 normal and S2 normal Bruits: no carotid bruits GI Inspection: obesity Musc Cervical Spine: normal cervical lordosis Thoracic/Lumbar Spine: thoracic and lumbar spine normal to inspection Skin General: no rashes or lesions noted Lesions: no lesions Rashes: no rashes Trauma: no lacerations or abrasions Wounds: no wounds Neuro General: patient alert, patient awake and patient oriented x3 Cognition: normal cognition Speech: speech normal Gait: normal gait Extrem General: normal to inspection and no pedal edema Psych Appearance: grossly normal Mental Status: mental status grossly normal Mood: congruent mood Affect: normal affect Speech and Movement: speech and movement normal (more content not included)... Normal [facility] Laboratory - Hematology and Cell countson 03-05-2024 HbA1c (Bld) [Mass fraction] 7.2 % High 4.2-6.3 [facility] Endocrinology Visit Reporton 11-14-2023 Endocrinology Visit Report [facility] [address] [place] [address]. [address] [place] [address] OFFICE VISIT Date of Service: 11/14/23 MR#: [id number] Acct: [id number] Name: DAWIT STOVALL Rep #: [id number] : 1970 Provider: VENKAT perez Age/Sex: 53/F Location: [facility] [place] Status: Signed Intake Vital Signs 08/14/23 14:08 11/14/23 15:13 Height 5 ft 7.75 in 5 ft 7.75 in Weight: 192 lb 195 lb BMI 29.4 29.8 BP 123/84 H 117/81 H Blood Pressure Location Lt brachial Lt brachial Position Sitting Sitting Pulse 82 88 Pulse Source Monitor Monitor Pulse Oximetry (%) 94 96 Oxygen Delivery Method room air room air Intake Visit Reasons: 3 M FU Chief Complaint: f/u diabetes [employer] Specialty Required: No Accompanied by: Self Is patient in pain?: No Allergies Latex, Natural Rubber Allergy (Intermediate, Verified 11/14/23 15:17) hives Medications ???Medication ???Instructions ???Recorded ???Confirmed ???Type pen needle, diabetic 32 gauge x #100 ea 05/09/23 08/14/23 Rx /32 (BD Ultra-Fine [place] Pen Needle) Lantus Solostar U-100 Insulin 100 20 unit (0.2 mL) subcut QPM #15 mL 08/03/23 11/14/23 Rx unit/mL (3 mL) subcutaneous pen (insulin glargine) cholecalciferol (vitamin D3) 50 50 mcg PO DAILY 08/14/23 11/14/23 History mcg (2,000 unit) capsule insulin lispro 100 unit/mL 7 unit (0.07 mL) subcut TID #15 mL 08/15/23 11/14/23 Rx subcutaneous pen (Humalog KwikPen (U-100) Insulin) rosuvastatin 5 mg tablet 5 mg PO DAILY #30 tabs 11/14/23 11/14/23 Rx PFSH Medical History Hives Diabetes Allergies Family History Other Cancer Social History Smoking Status: Never smoker HPI HPI Chief Complaint: f/u diabetes Details: DAWIT STOVALL, is a 53 F who presents to the office today for evaluation and management of diabetes. A1C today is 7.0%, improved from 08/14/23 at 8.0%. she has gained 3 lbs. Currently taking Lantus 32 u once daily. Humalog 7 u TIDCM was added at previous appt with increase in A1C. She does not have blood log for review- denies any blood sugars <70. Fastings average around 145, 2 hr post meal 190's. Reports I'm feeling better. She has been making dietary modifications since her last appt here in August. She has been routinely taking vitamin D3 and rosuvastatin. Labs are up to date. Denies any acute concerns. ROS Const Constitutional: Positive for other (ROS negative x10 body systems) Exam Const General: cooperative, healthy appearing, comfortable and no acute distress Nutritional Appearance: overweight Orientation: alert, awake and oriented x3 HENOH Head: normal to inspection Ears: hearing grossly normal bilaterally Nose: external nose normal Face and sinus: normal facial exam Eyes General: appearance normal, both eyes and all related structures Alignment and Position: alignment normal Sclera: sclerae normal Neck Neck: normal visual inspection Carotids: normal carotid upstroke Chest Chest palpation inspection: normal inspection of the chest Resp Effort Inspection: normal respiratory effort, able to speak in complete sentences, symmetric chest movement, normal respiratory pattern, no audible wheezes and no cough Auscultation: Bilateral: Clear to Auscultation Cardio Rate: regular rate Rhythm: regular rhythm Heart Sounds: S1 normal and S2 normal Bruits: no carotid bruits GI Inspection: normal to inspection Musc Cervical Spine: normal cervical lordosis Thoracic/Lumbar Spine: thoracic and lumbar spine normal to inspection Skin General: no rashes or lesions noted Lesions: no lesions Rashes: no rashes Trauma: no lacerations or abrasions Wounds: no wounds Neuro General: patient alert, patient awake and patient oriented x3 Cognition: normal cognition Speech: speech normal Gait: normal gait Extrem General: normal to inspection and no pedal edema Psych Appearance: grossly normal Mental Status: mental status grossly normal Mood: congruent mood Affect: normal affect Speech and Movement: speech and movement normal Attitude: cooperative Thought Process: normal Thought Content: normal Judgment: judgment good Assessment and Plan Assessment and Plan (1) Diabetes: Status: Chronic Qualifiers: Diabetes mellitus type: type 2 Diabetes mellitus residential insulin use: with salvage determiner use Diabetes mellitus complication status: without complication Qualified Code(s): E11.9 - Type 2 diabetes mellitus without complications; Z79.4 - correction (current) use of insulin Plan: Chronic- controlled. I reviewed with the patient the risk of developing and w (more content not included)... Normal [facility] Basophil percentageOrdered B y: Gisele Coulter on 05-09-2023 Bilirubin [Mass/Vol] 1.00 mg/dL 0.20-1.00 [facility] Comment on above: For patients on eltr ombopag therapy, use of Dimension Gaines TBIL is not recommended. Chloride [Moles/Vol] 105 mmol/L 98-107 [facility] Cholesterol [Mass/Vol] 244 mg/dL <200 [facility] Comment on above: <200 mg/dL Desirable 200-240 mg/dL Borderline >240 mg/dL High Risk Glucose [Mass/Vol] 131 mg/dL 74-106 [facility] Comment on above: Fasting Glucose resu lt greater than or equal to 126 mg/dL suggests DIABETES MELLITUS per A.D.A. criteria. Potassium [Moles/Vol] 3.8 mmol/L 3.5-5.1 [facility] Protein [Mass/Vol] 7.6 g/dL 6.4-8.2 [facility] Sodium [Moles/Vol] 138 mmol/L 136-145 [facility] Triglyceride [Mass/Vol] 172 mg/dL <199 [facility] Comment on above: The drugs N-Acetylcy steine and Metamizole may falsely depress this assay.Serum Triglycerides Reference Interval Normal <150 mg/dL Borderline high 150 - 199 mg/dL High 200 - 499 mg/dL Very High > or = 500 mg/dL Laboratory - Chemistry and C hemistry - challengeOrdered By: Gisele Coulter on 05-09-2023 Albumin/Globulin [Mass ratio] 0.9 {ratio} 0.9-2.4 [facility] ALP [Catalytic activity/Vol] 57 U/L 45-117 [facility] ALT [Catalytic activity/Vol] 11 U/L 13-56 [facility] Cholesterol in HDL [Mass/Vol] 56 mg/dL >40 [facility] Comment on above: The drugs N-Acetylcy steine and Metamizole may falsely depress this assay. Reference Range HDL <40 mg/dL Low HDL Cholesterol HDL >or= 60 mg/dL High HDL Cholesterol Cholesterol in LDL [Mass/Vol] 154 mg/dL 0-130 [facility] CO2 [Moles/Vol] 25.0 mmol/L 21.0-32.0 [facility] Globulin (S) [Mass/Vol] 4.0 g/dL 2.2-4.2 [facility] Urea nitrogen/Creatinine [Mass ratio] 34.9 mg/mg 10-20 [facility] Laboratory - Hematology and Cell countson 05-09-2023 HbA1c (Bld) [Mass fraction] 7.3 % 4.2-6.3 [facility] No Panel InformationOrdered By: Gisele Coulter on 05-09-2023 Estimated GFR (MDRD) Amer 126 mL/min >60 [facility] Comment on above: GFR Calc Estimated GFR (MDRD) Non-Af Amer 104 mL/min >60 [facility] Comment on above: Non- GFR Calc Urine Microalbumin/Creatinin e Ratio 14.5 mg/g CRE <30 [facility] Vitamin D 25-Hydroxy 21.4 ng/mL [facility] Comment on above: Vitamin D 25(OH) Sta tus Range Deficiency <20 ng/mL (50nmol/L) Insufficiency 20 - 30 ng/mL (50 - 75 nmol/L) Sufficiency 30 - 100 ng/mL (75 - 250 nmol/L) Toxicity >100 ng/mL (>250 nmol/L) VLDL Cholesterol 34 mg/dL 5-40 [facility] Serum or plasma calcium elizabeth urement (mass/volume)Ordered By: Gisele Coulter on 05-09-2023 Calcium [Mass/Vol] 8.6 mg/dL 8.5-10.1 [facility] Serum or plasma creatinine m easurement (mass/volume)Ordered By: Gisele Coulter on 05-09-2023 Creatinine [Mass/Vol] 0.63 mg/dL 0.55-1.02 [facility] Comment on above: The validity of the calculated GFR & GFRAA in patients over 70 years has not been determined. Clinical correlation is essential. Serum or plasma thyroid stim ulating hormone (TSH) measurement (units/volume)Ordered By: Gisele Coulter on 05-09-2023 TSH Qn 1.55 uIU/mL 0.358-3.74 [facility] Serum or plasma urea nitroge n measurement (mass/volume)Ordered By: Gisele Coulter on 05-09-2023 Urea nitrogen [Mass/Vol] 22 mg/dL 7-18 [facility] Thin prep Papanicolaou smear with manual screeningOrdered By: Gisele Coulter on 05-09-2023 Thin prep Papanicolaou smear with manual screening 3.6 g/dL 3.2-5.0 [facility] Thin prep Papanicolaou smear with manual screening 11 U/L 15-37 [facility] Thin prep Papanicolaou smear with manual screening 8 5-15 [facility] Thin prep Papanicolaou smear with manual screening 22.2 mg/L NO RANGE EST. [facility] Urine creatinine measurement (mass/volume)Ordered By: Gisele Coulter on 05-09-2023 Creatinine (U) [Mass/Vol] 153.00 mg/dL NO RANGE EST. [facility] Basophil percentageon 2021 Bilirubin [Mass/Vol] 0.70 mg/dL 0.20-1.00 [facility] Work Phone: Comment on above: For patients on eltr ombopag therapy, use of Dimension Gaines TBIL is not recommended. Chloride [Moles/Vol] 103 mmol/L 98-107 [facility] Work Phone: Cholesterol [Mass/Vol] 191 mg/dL <200 [facility] Work Phone: Comment on above: <200 mg/dL Desirable 200-240 mg/dL Borderline >240 mg/dL High Risk Glucose [Mass/Vol] 127 mg/dL 74-106 [facility] Work Phone: Comment on above: Fasting Glucose resu lt greater than or equal to 126 mg/dL suggests DIABETES MELLITUS per A.D.A. criteria. Potassium [Moles/Vol] 4.3 mmol/L 3.5-5.1 [facility] Work Phone: Protein [Mass/Vol] 7.3 g/dL 6.4-8.2 [facility] Work Phone: Sodium [Moles/Vol] 138 mmol/L 136-145 [facility] Work Phone: [phone] Triglyceride [Mass/Vol] 131 mg/dL <199 [facility] Work Phone: Comment on above: The drugs N-Acetylcy steine and Metamizole may falsely depress this assay.Serum Triglycerides Reference Interval Normal <150 mg/dL Borderline high 150 - 199 mg/dL High 200 - 499 mg/dL Very High > or = 500 mg/dL Laboratory - Chemistry and C hemistry - challengeon 08-28-2021 ALP [Catalytic activity/Vol] 43 U/L 45-117 [facility] Work Phone: [phone] ALT [Catalytic activity/Vol] 19 U/L 13-56 [facility] Work Phone: [phone] CO2 [Moles/Vol] 26.0 mmol/L 21.0-32.0 [facility] Work Phone: [phone] Globulin (S) [Mass/Vol] 3.7 g/dL 2.2-4.2 [facility] Work Phone: Urea nitrogen/Creatinine [Mass ratio] 32.0 mg/mg 10-20 [facility] Work Phone: [phone] Laboratory - Hematology and Cell countson 08-28-2021 HbA1c (Bld) [Mass fraction] 5.5 % 4.2-6.3 [facility] Work Phone: No Panel Informationon 08-28 Estimated GFR (MDRD) Amer 155 mL/min >60 [facility] Work Phone: Comment on above: GFR Calc Estimated GFR (MDRD) Non-Af Amer 128 mL/min >60 [facility] Work Phone: Comment on above: Non- GFR Calc Thyroid Stimulating Hormone (TSH) 1.52 uIU/mL 0.358-3.74 [facility] Work Phone: [phone] Vitamin D 25-Hydroxy 23.7 ng/mL [facility] Work Phone: Comment on above: Vitamin D 25(OH) Sta tus Range Deficiency <20 ng/mL (50nmol/L) Insufficiency 20 - 30 ng/mL (50 - 75 nmol/L) Sufficiency 30 - 100 ng/mL (75 - 250 nmol/L) Toxicity >100 ng/mL (>250 nmol/L) Serum or plasma albumin elizabeth urement (mass/volume)on 08-28-2021 Albumin [Mass/Vol] 3.6 g/dL 3.2-5.0 [facility] Work Phone: Serum or plasma albumin/glob ulin mass ratioon 08-28-2021 Albumin/Globulin [Mass ratio] 1.0 {ratio} 0.9-2.4 [facility] Work Phone: Serum or plasma calcium elizabeth urement (mass/volume)on 08-28-2021 Calcium [Mass/Vol] 8.6 mg/dL 8.5-10.1 [facility] Work Phone: Serum or plasma cholesterol in HDL measurement (mass/volume)on 08-28-2021 Cholesterol in HDL [Mass/Vol] 63 mg/dL >40 [facility] Work Phone: Comment on above: The drugs N-Acetylcy steine and Metamizole may falsely depress this assay. Reference Range HDL <40 mg/dL Low HDL Cholesterol HDL >or= 60 mg/dL High HDL Cholesterol Serum or plasma cholesterol in VLDL measurement (mass/volume)on 08-28-2021 Cholesterol in VLDL [Mass/Vol] 26 mg/dL 5-40 [facility] Work Phone: [phone] Serum or plasma creatinine m easurement (mass/volume)on 08-28-2021 Creatinine [Mass/Vol] 0.53 mg/dL 0.55-1.02 [facility] Work Phone: Comment on above: The validity of the calculated GFR & GFRAA in patients over 70 years has not been determined. Clinical correlation is essential. Serum or plasma low density lipoprotein (LDL) cholesterol measurement (mass/volume)on 08-28-2021 Cholesterol in LDL [Mass/Vol] 102 mg/dL 0-130 [facility] Work Phone: Serum or plasma urea nitroge n measurement (mass/volume)on 08-28-2021 Urea nitrogen [Mass/Vol] 17 mg/dL 7-18 [facility] Work Phone: [phone] Thin prep Papanicolaou smear with manual screeningon 08-28-2021 Thin prep Papanicolaou smear with manual screening 19 U/L 15-37 [facility] Work Phone: Thin prep Papanicolaou smear with manual screening 9 5-15 [facility] Work Phone: Laboratory - Hematology and Cell countson 05-29-2021 HbA1c (Bld) [Mass fraction] 10.2 % [facility] Work Phone: Otheron 04-25-2006 CONVERTED ELECTRONIC SIGNATURE RONALD TALAVERA M.D., PATHOLOGIST (Electronic signature on file) Final Signed Out: 04/25/2006 11:[address] [facility] CONVERTED FINAL DIAGNOSIS UTERUS, SIMPLE HYSTERECTOMY - CERVIX - NO PATHOLOGIC ABNORMALITIES. ENDOMETRIUM - PROLIFERATIVE PHASE. MYOMETRIUM - ADENOMYOSIS. [facility] CONVERTED ORDERING PROVIDER Ordering Provider: MARTIN CLARK [facility] Vital Signs Date Time Vital Sign Value Performing Clinician Britni chang 08-06-2024 15:14-0400 Body height 172.09 cm No Primary Care Physician [facility] 08-06-2024 15:14-0400 Body mass index (BMI) [Ratio] 31.5 kg/m2 No Primary Care Physician [facility] 08-06-2024 15:14-0400 Body weight 93.44 kg No Primary Care Physician [facility] 08-06-2024 15:14-0400 Diastolic blood pressure 76 mm[Hg] No Primary Care Physician [facility] 08-06-2024 15:14-0400 Heart rate 83 /min No Primary Care Physician [facility] 08-06-2024 15:14-0400 SaO2% (BldA) [Mass fraction] 93 % No Primary Care Physician [facility] 08-06-2024 15:14-0400 Systolic blood pressure 110 mm[Hg] No Primary Care Physician [facility] 03-05-2024 15:19-0500 Body height 172.09 cm No Primary Care Physician [facility] 03-05-2024 15:19-0500 Body mass index (BMI) [Ratio] 30 kg/m2 No Primary Care Physician [facility] 03-05-2024 15:19-0500 Body weight 89.07 kg No Primary Care Physician [facility] 03-05-2024 15:19-0500 Diastolic blood pressure 85 mm[Hg] No Primary Care Physician [facility] 03-05-2024 15:19-0500 Heart rate 85 /min No Primary Care Physician [facility] 03-05-2024 15:19-0500 SaO2% (BldA) [Mass fraction] 97 % No Primary Care Physician [facility] 03-05-2024 15:19-0500 Systolic blood pressure 134 mm[Hg] No Primary Care Physician [facility] 05-09-2023 08:34-0500 Body height 172.[address] [facility] 05-09-2023 08:34-0500 Body mass index (BMI) [Ratio] 29.6 kg/m2 Dr. Escalante [facility] 05-09-2023 08:34-0500 Body temperature 98.4 [degF] Dr. Boris Pederson [facility] 05-09-2023 08:34-0500 Body weight 87.[address] [facility] 05-09-2023 08:34-0500 Diastolic blood pressure 80 mm[facility]Hg[facility] 08:34-0500 Heart rate 78 /min Dr. Escalante [facility] 05-09-2023 08:34-0500 Respiratory rate 16 /min Dr. Escalante [facility] 05-09-2023 08:34-0500 SaO2% (BldA) [Mass fraction] 98 % Dr. Escalante [facility] 05-09-2023 08:34-0500 Systolic blood pressure 118 mm[Hg] Dr. Escalante [facility] 08-28-2021 08:04-0400 Body height 172.[address] Boris Pederson Work Phone: [facility] Work Phone: 08-28-2021 08:04-0400 Body mass index (BMI) [Ratio] 29 kg/m2 Dr. Boris Pederson Work Phone: [facility] Work Phone: 08-28-2021 08:04-0400 Body temperature 94.3 [degF] Dr. Boris Pederson Work Phone: [facility] Work Phone: 08-28-2021 08:04-0400 Body weight 85.[address] Boris Pederson Work Phone: [facility] Work Phone: 08-28-2021 08:04-0400 Diastolic blood pressure 82 mm[Hg] Dr. Boris Pederson Work Phone: [facility] Work Phone: 08-28-2021 08:04-0400 Heart rate 90 /min Dr. Boris Pederson Work Phone: [facility] Work Phone: 08-28-2021 08:04-0400 Respiratory rate 18 /min Dr. Boris Pederson Work Phone: [facility] Work Phone: 08-28-2021 08:04-0400 SaO2% (BldA) [Mass fraction] 97 % Dr. Boris Pederson Work Phone: [facility] Work Phone: 08-28-2021 08:04-0400 Systolic blood pressure 118 mm[Hg] Dr. Boris Pederson Work Phone: [facility] Work Phone: 05-29-2021 15:42-0400 Body mass index (BMI) [Ratio] 27.9 kg/m2 Dr. Boris Pederson Work Phone: [facility] Work Phone: 05-29-2021 15:42-0400 Body temperature 96.6 [degF] Dr. Boris Pederson Work Phone: [facility] Work Phone: 05-29-2021 15:42-0400 Body weight 82.[address] Boris Pederson Work Phone: [facility] Work Phone: 05-29-2021 15:42-0400 Diastolic blood pressure 88 mm[Hg] Dr. Boris Pedesron Work Phone: [facility] Work Phone: 05-29-2021 15:42-0400 Heart rate 90 /min Dr. Boris Pederson Work Phone: [facility] Work Phone: 05-29-2021 15:42-0400 Respiratory rate 18 /min Dr. Boris Pederson Work Phone: [facility] Work Phone: 05-29-2021 15:42-0400 SaO2% (BldA) [Mass fraction] 96 % Dr. Boris Pederson Work Phone: [facility] Work Phone: 05-29-2021 15:42-0400 Systolic blood pressure 122 mm[Hg] Dr. Boris Pederson Work Phone: [facility] Work Phone: Encounters Encounter Date Encounter Type Care Provider Facility Start: 08-06-2024 End: 08-06-2024 Patient encounter procedure Gisele NEUMANNC -[facility] Work Phone: Start: 08-06-2024 End: 08-06-2024 ambulatory No Primary Care Physician [facility] Work Phone: Start: 08-06-2024 End: 08-06-2024 ambulatory No Primary Care Physician [facility] Work Phone: Start: 08-06-2024 End: 08-06-2024 Patient encounter procedure Gisele Coulter [facility] -Laboratory Work Phone: Start: 08-06-2024 End: 08-06-2024 ambulatory Gisele Coulter Facility:[facility] Start: 05-28-2024 End: 05-28-2024 ambulatory No Primary Care Physician [facility] Work Phone: Start: 05-28-2024 End: 05-28-[address] Trevon Aguero MD -Physical Therapy Work Phone: Start: 03-17-2024 End: 03-17-[address] Boris Torres MD -[facility] Work Phone: Start: 03-17-2024 End: 03-17-2024 ambulatory Boris Torres Facility:[facility] Start: 03-05-2024 End: 03-05-2024 Patient encounter procedure Gisele Coulter TIRE BALANCER-C -[facility] Work Phone: Start: 03-05-2024 End: 03-05-2024 ambulatory Gisele Coulter Facility:[facility] Start: 11-14-2023 End: 11-14-2023 ambulatory Gisele Coulter Facility:[facility] Start: 05-09-2023 End: 05-09-[address] Boris Pederson [facility] Work Phone: Start: 05-09-2023 End: 05-09-[address] Boris Pederson [facility] Work Phone: Start: 08-28-2021 End: 08-28-[address] Boris Pederson Work Phone: [facility] Start: 05-29-2021 End: 05-29-[address] Boris Pederson Work Phone: [facility] Start: 04-23-2006 End: 04-23-2006 Patient encounter procedure Martin Espino (Historical) Shira Work Phone: [facility] Start: 04-23-2006 Results Only Martin Espino (Histor ical) Shira Work Phone: [facility] Procedures Date Procedure Procedure Detail Performing Clinician Start: 08-06-2024 Vitamin D, 25-hydrox y measurement No Primary Care Physician Comment on above: Vitamin D StatusDefi ciency: <20 ng/mL (50nmol/L)Insufficiency: 20-30 ng/mL (50-75 nmol/L)Sufficiency: 30-100 ng/mL (75-250 nmol/L)Toxicity: >100 ng/mL (>250 nmol/L) Start: 03-17-2024 X-ray of ankle, thre e or more views No Primary Care Physician Start: 03-17-2024 X-ray of foot, three or more views No Primary Care Physician Start: 04-23-2006 CONVERTED SURGICAL PATHOLOGY Martin Espino (Historical) [facility] Work Phone: Plan of Treatment Date Care Activity Detail Author Start: 03-17-2024 Patient referral [facility] Work Phone: Start: 03-05-2024 Patient referral [facility] Work Phone: Start: 11-03-2019 Influenza vaccination INFLUENZA (#1) [facility] Start: 2019 SHINGRIX VACCINE (1 of 2) SHINGRIX VACCINE (1 of 2) [facility] Start: 2019 Tuberculosis screening COLORECTAL CANCER SCREENING,SEE MODIFIER [facility] Start: 2014 DIABETES SCREEN DIABETES SCREEN [facility] Start: 2014 LIPID SCREEN LIPID SCREEN [facility] Start: 2009 Mammography MAMMOGRAM [facility] Start: 1999 HPV TESTING HPV TESTING [facility] Start: 1990 PAP TESTING PAP TESTING [facility] Start: 1988 Urine microalbumin profile DTAP,TDAP,TD (1 - Tdap) [facility] Start: 1987 HEPATITIS C SCREENING HEPATITIS C SCREENING [facility] Start: 1987 HIV SCREENING HIV SCREENING [facility] Comprehensive metabo lic 2000 panel - Serum or Plasma [facility] Lipid 1996 panel - S kathy or Plasma [facility] Patient referral [facility] Work Phone: T4 free measurement [facility] Thyroid stimulating hormone measurement [facility] Thyroid stimulating hormone measurement [facility] Thyroperoxidase Ab [Units/volume] in Serum or Plasma [facility] Urine microalbumin/creatinine ratio measurement [facility] Vitamin D, 25-hydrox y measurement [facility] Payers Date Payer Category Payer Self-pay [id number] 2023 Self-pay [id number] 2023 Private Health Insurance [id number] 2023 Unknown [id number] 2001 Unknown [facility] GENERIC [id number] 2001-2009 Indemnity [id number] Private Health Insurance [id number] Self-pay SELF PAY INSURANCE [id number] Unknown MMO ZZZMMO SUPER MED PLUS [id number] Through 2018 PPO [id number] Unknown [id number] Unknown MED MUTUAL TPA [id number] Unknown [id number] Unknown [id number] Unknown [id number] Unknown [id number] Unknown [id number] Unknown [id number] Unknown [id number] Social History Date Type Detail [facility] Sex Assigned At Not on file [facility] Start: 08-28-2021 End: 05-09-2023 Tobacco smoking status [facility] Unknown if ever smoked [facility] Start: 1970 Sex Assigned At Female [facility] Start: 05-09-2023 [facility] (finding[facility] Start: 05-29-2024 Sex Female (finding) [facility] Medical Equipment Procedure Code Equipment Code Equipment Origin al Text Equipment Identifier Dates Pen Needle, Diab etic (Bd Ultra-Fine [place] Pen Needle) 32 gauge x 5/32 needle Start: 08-28-2021 Pen Needle, Diab etic (Bd Ultra-Fine [place] Pen Needle) 32 gauge x 5/32 needle Start: 05-01-2021 End: 08-28-2021 Pen Needle, Diab etic (Bd Ultra-Fine [place] Pen Needle) 32 gauge x 5/32 needle Start: 05-09-2023 Pen Needle, Diab etic (Bd Ultra-Fine [place] Pen Needle) 32 gauge x 5/32 needle Start: 05-01-2021 End: 08-28-2021 Pen Needle, Diab etic (Bd Ultra-Fine [place] Pen Needle) 32 gauge x 5/32 needle Start: 08-28-2021 End: 05-09-2023 Pen Needle, Diab etic (Bd Ultra-Fine [place] Pen Needle) 32 gauge x 5/32 needle Start: 05-09-2023 Pen Needle, Diab etic (Bd Ultra-Fine [place] Pen Needle) 32 gauge x 5/32 needle Start: 05-01-2021 End: 08-28-2021 Pen Needle, Diab etic (Bd Ultra-Fine [place] Pen Needle) 32 gauge x 5/32 needle Start: 08-28-2021 End: 05-09-2023 Pen Needle, Diab etic (Bd Ultra-Fine [place] Pen Needle) 32 gauge x 5/32 needle Start: 05-09-2023 Pen Needle, Diab etic (Bd Ultra-Fine [place] Pen Needle) 32 gauge x 5/32 needle Start: 05-01-2021 End: 08-28-2021 Pen Needle, Diab etic (Bd Ultra-Fine [place] Pen Needle) 32 gauge x 5/32 needle Start: 08-28-2021 End: 05-09-2023 Pen Needle, Diab etic (Bd Ultra-Fine [place] Pen Needle) 32 gauge x 5/32 needle Start: 05-09-2023 Pen Needle, Diab etic (Bd Ultra-Fine [place] Pen Needle) 32 gauge x 5/32 needle Start: 05-01-2021 End: 08-28-2021 Pen Needle, Diab etic (Bd Ultra-Fine [place] Pen Needle) 32 gauge x 5/32 needle Start: 08-28-2021 End: 05-09-2023 Evaluation note 08-06-2024 Note Date & Type Note Facility 08-06-2024 Evaluation note Diagnosis Onset Date Resolution Hypothyroid acute August 06 3:13pm Diabetes chronic August 06, 2024 3:13pm High cholesterol chronic August 3:13pm Obesity chronic August 06, 2024 3:13pm Vitamin D insufficiency chronic J 2024 3:13pm [facility] Work Phone: Discharge summary 05-28-2024 Note Date & Type Note Facility 05-28-2024 Discharge summary Note Date/Time May 28, 2024 7:00pm [facility] Physical [facility] [address] [place] [address]. [address] [place] [address] / REHABILITATION SERVICES DISCHARGE SUMMARY MR#: [id number] Acct: [id number] Name: DAWIT STOVALL Rep #: [id number] : 1970 54 From: Ronald Koenig DPT, OCS, CSCS Referring Dr.: Dr. Trevon Aguero MD Status : REG RCR Insurance: [facility] [employer]URANCE Discharge Summary D/C summary: It has been my pleasure to treat DAWIT STOVALL referred by Dr. Trevon Aguero MD, with the diagnosis of L ankle pain for a total of 8 visit(s). Discharge Date: 05/28/24 Please see the following information for a summary of their discharge status. Subjective Subjective: Swelling is up and down. Seems to get better with massage. Will see [facility] for possible MRI. pain this week L ankle intermittent 4/10 but mostly 0/10, Only with pushing sideways into car. No improvement in those activities. Pivotting can also cause it. Transient pain. Pain L ankle lateral: Pain Intensity (Out of 10): 3 Overall Improvement % Improvement: 0 Objective Objective/Function: 2 degree DF B. Max tender ant lateral malleoli ligs and swollen here as much as day one. Painful ROM into eversion and ext on R and resisted inv, ev. Pt frustrated with lack of progrfess and sharp pains with lateral movement and getting in and out of car. Goals Goal 1:: Put on shoes without pain Goal Progress: Not Progressing Goal 2:: Pt feel 95% better overall and 1/10 pain at worst, comfortable at rest Goal Progress: Not Progressing Goal 3:: I appropriate managemnt including bracing, and ex for proprioception and strength Goal Progress: Not Progressing Goal 4:: LEFS score 40 Goal Progress: Not Progressing Goal 5:: walks and steps without antalgia Goal Progress: Goal Met Plan Plan: Pt back to doctor for next step due to lack of improvement with PT..., MRI? She will continue ex in the meantime via HEP d/c this chart. D/C Information Discharge Comments: Meche to doctor for next medical step. d/c sentence: If there are questions or concerns regarding this patient's physical therapy, please feel free to call me at [phone]. Thank you for the referral of thispatient. Sincerely, Ronald Koenig, EMMANUELT, OCS, CSCS Balance/Gait/Functional tests Balance/Special Test Scores Lower Extremity Functional Score: 50 Improvement % Improvement: 0 <Electronically signed by Ronald Koenig DPT, OCS, CSCS> 05/28/24 7102 CC: Dr. Trevon Aguero MD; No Primary Care Physician ~ EBG Signed [facility] Work Phone: Discharge summary 05-28-2024 Note Date & Type Note Facility 05-28-2024 Discharge summary [facility] Evaluation note 03-05-2024 Note Date & Type Note Facility 03-05-2024 Evaluation note Diagnosis Onset Date Resolution Diabetes chronic March 05, 2 025 3:14pm High cholesterol chronic March 05, 2024 3:14pm Left foot pain chronic March 3:14pm Obesity chronic March 05 025 3:14pm Vitamin D insufficiency chronic J an2024 3:14pm Impingement of left ankle joint acute March 17 2:50pm Left foot pain chronic March 172024 2:50pm [facility] Work Phone: Evaluation note Note Date & Type Note Facility Evaluation note Diagnosis Onset Date Diabetes chronic Overweight chronic Diabetes chronic Overweight chronic [facility] Work Phone: Evaluation note Note Date & Type Note Facility Evaluation note Diagnosis Onset Date Diabetes chronic Overweight chronic Vitamin D insufficiency 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 Work Phone: Reason for referral (narrative) Note Date & Type Note Facility Reason for referral (narrative) No reason for referral information available [facility] Work Phone: Chief Complaint and Reason for Visit Chief Complaint 1 M FU 3 M FU Reason for Visit Diabetes Overweight Diabetes Overweight Chief Complaint 7 M FU, RS 02-01 INT LABS Reason for Visit Diabetes Overweight Vitamin D insufficiency Chief Complaint Admit Date 4 M FU March 05, 2024 3: 14pm LEFT FOOT March 17, 2024 2 :50pm Room 5 March 17, 2024 3 :09pm L ANKLE PAIN, RX HERE May 28, 2024 3 :30pm Reason for Visit Admit Date Diabetes March 05, 2024 3: 14pm High cholesterol March 05, 2024 3: 14pm Left foot pain March 05, 2024 3: 14pm Obesity March 05, 2024 3: 14pm Vitamin D insufficiency March 05 3:14pm Impingement of left ankle joint March 17, 2024 2:50pm Left foot pain March 17, 2024 2 :50pm Chief Complaint Admit Date L ANKLE PAIN, RX HERE May 28, 2024 3 :30pm 5 M FU August 06, 2024 3:13p m Reason for Visit Admit Date Hypothyroid August 06, 2024 3:13p m Diabetes August 06, 2024 3:13p m High cholesterol August 06, 2024 3:13p m Obesity August 06, 2024 3:13p m Vitamin D insufficiency August 06, 2024 3 :13pm Advance Directives No Advanced Directives Records Found Advance Directive Response Recorded Date/ Time Living Will No March 08 8:17pm Power of Sql Analyst No March 08 015 8:17pm Advance Directive Response Recorded Date/ Time Living Will No March 08 8:17pm Do you have a Healthcare Power of Sql Analyst? No March 08, 2014 8:17pm Summary Purpose Family History No Family History Records Found Additional Source Comments Source Comments (unrecognize d section and content) In the event this informatio n is protected by the Federal Confidentiality of Alcohol and Drug Abuse Patient Records regulations: The Federal rules restrict any use of the information to criminally investigate or prosecute any alcohol or drug abuse patient.[facility] Goals (unrecognized section and content) Goals may be documented in a n alternate sectionGoals may be documented in an alternate sectionGoals may be documented in an alternate sectionGoals may be documented in an alternate sectionGoals may be documented in an alternate section Care Teams (unrecognized sec tion and content) Team Status: Active Member Role Status Dates Dr. Boris Pederson MD Family Provider Active No Primary Care Physician Primary Care Provider Active Team Status: Inactive Member Role Status Dates Dr. Boris Pederson MD Primary Care Provider, Referring Provider Active VENKAT Arauz Attending Provider Active Team Status: Inactive Member Role Status Dates No Primary Care Physician Primary Care Provider Active VENKAT Arauz Attending Provider, Referring Pr terry Active Team Status: Active Member Role Status Dates No Primary Care Physician Primary Care Provider Active Team Status: Inactive Member Role Status Dates No Primary Care Physician Primary Care Provider Active Start: March 05, 2024 End: March 05, 2024 No Primary Care Physician Referring Provider Active Start: March 05, 2024 End: March 05, 2024 Gisele Yfn , TIRE BALANCER-C Attending Provider Active Start: March 05, 2024 End: March 05, 2024 Team Status: Inactive Member Role Status Dates No Primary Care Physician Primary Care Provider Active Start: March 17, 2024 End: March 17, 2024 No Primary Care Physician Referring Provider Active Start: March 17, 2024 End: March 17, 2024 Boris Torres MD Attending Provider Active St art: March 17, 2024 End: March 17, 2024 Team Status: Inactive Member Role Status Dates No Primary Care Physician Primary Care Provider Active Start: March 17, 2024 End: March 17, 2024 Dr. Vikash Jain MD Attending Provider Active S tart: March 17, 2024 End: March 17, 2024 Team Status: Inactive Member Role Status Dates No Primary Care Physician Primary Care Provider Active Start: May 28, 2024 End: May 28, 2024 Dr. Trevon Aguero MD Attending Provider Active Start: May 28, 2024 End: May 28, 2024 Dr. Trevon Aguero MD Referring Provider Active Start: May 28, 2024 End: May 28, 2024 Team Status: Active Member Role Status Dates No Primary Care Physician Primary Care Provider Active Start: August 06, 2024 VENKAT Arauz Attending Provider Active Start: August 06, 2024 VENKAT Arauz Referring Provider Active Start: August 06, 2024 Team Status: Inactive Member Role Status Dates No Primary Care Physician Primary Care Provider Active Start: August 06, 2024 End: August 06, 2024 No Primary Care Physician Referring Provider Active Start: August 06, 2024 End: August 06, 2024 VENKAT Arauz Attending Provider Active Start: August 06, 2024 End: August 06, 2024 Team Status: Inactive Member Role Status Dates No Primary Care Physician Primary Care Provider Active Start: August 06, 2024 End: August 06, 2024 VENKAT Arauz Attending Provider Active Start: August 06, 2024 End: August 06, 2024 VENKAT Arauz Referring Provider Active Start: August 06, 2024 End: August 06, 2024 INFORMATION SOURCE (unrecogn ized section and content) DATE CREATED AUTHOR 09/26/2024 [facility] FOR RECORDS PERTAINING TO PATIENTS WHO [...] BE BASED ON THE PRIMARY CLINICAL RECORDS. [facility] provides no warranty or guarantee of the accuracy or completeness of information in this document.
== END | disposition home or self-care (01) ==
PROVIDERS: Referring Provider Nurse Practitioner Family; Visit Provider Nurse Practitioner Family
DX: R79.89 Other specified abnormal findings of blood chemistry (principal)
CPT/HCPCS: 36415; 84439; 84443